=== PATIENT | female | born 1990 | race Caucasian/White ===

== ENCOUNTER 2016-08-26 10:29 | Emergency (ER) | payer SELFPAY ==
[2016-08-26 11:09] VITALS: BP 119/78
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
== END 2016-08-26 12:30 | disposition home or self-care (01) ==
LOC: JD.ED 10:29
DX: S80.211A Abrasion, right knee, initial encounter (principal); F41.9 Anxiety disorder, unspecified; F32.9 Major depressive disorder, single episode, unspecified; F17.210 Nicotine dependence, cigarettes, uncomplicated; Z88.8 Allergy status to other drugs, medicaments and biological substances; Z79.899 Other long term (current) drug therapy; V00.131A Fall from skateboard, initial encounter
CPT/HCPCS: 99283

== ENCOUNTER 2016-10-08 21:37 | Emergency (ER) | payer MEDICAID ==
[2016-10-08 21:45] VITALS: BP 117/84
[2016-10-08] MEDS ORDERED: Sodium Chloride 0.9% 10 ML Syringe FLUSH PRN (22:04)
[2016-10-08] MEDS ORDERED: Ondansetron 4 MG/2 ML SDV IVPUSH ONE (22:04)
[2016-10-08] MEDS ORDERED: Sodium Chloride 0.9% 1,000 ML IV STA (22:04)
[2016-10-08] MEDS ORDERED: HYDROmorphone 1 MG/ML Syringe IVPUSH ONE (22:05)
[2016-10-08] MEDS ORDERED: Acetaminophen 325 MG Tab PO ONE (22:05)
--- NOTE | 2016-10-08 22:53 | EDM.PDOC ---
ED HPI GENERAL MEDICAL PROBLEM - General Chief Complaint: Flank Pain Stated Complaint: KIDNEY PAIN/CHILLS Time Seen by Provider: 10/08/16 21:49 Source of Information: Reports: Patient History Limitations: Reports: No Limitations - History of Present Illness INITIAL COMMENTS - FREE TEXT/NARRATIVE: The patient presents with a fever, flank pain and dysuria. She had dysuria for a few days and was going to go into the clinic but she had to work. She now has bilateral flank pain, nausea, vomiting, and fever. She also has some abdominal pain. She does get UTIs easily. She has never had a kidney infection like this. She has chills. She denies chest pain, shortness of breath, cough, congestion or runny nose. Duration: Day(s): Location: Reports: Abdomen, Back Quality: Reports: Sharp Severity: Moderate Improves with: Reports: None Worsens with: Reports: None Associated Symptoms: Reports: Fever/Chills, Nausea/Vomiting. 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) Other OB/BYN History: cyst to left side Psychiatric History: Reports: Anxiety, Other (See Below) Other Psychiatric History: manic depression, insommnia Social & Family History - Tobacco Use Smoking Status *Q: Current Every Day Smoker Years of Tobacco use: 12 Packs/Tins Daily: 0.4 - Caffeine Use Caffeine Use: Reports: Coffee, Energy Drinks, Soda - Recreational Drug Use Recreational Drug Use: No ED ROS GENERAL - Review of Systems Review Of Systems: See Below Constitutional: Reports: Fever, Chills HEENT: Reports: No Symptoms Respiratory: Reports: No Symptoms Cardiovascular: Reports: No Symptoms Endocrine: Reports: No Symptoms GI/Abdominal: Reports: Abdominal Pain, Nausea, Vomiting. Denies: Diarrhea : Reports: Dysuria, Flank Pain Musculoskeletal: Reports: Back Pain ED EXAM, RENAL/ - Physical Exam Exam: See Below Exam Limited By: No Limitations General Appearance: Alert, No Apparent Distress Ears: Normal External Exam Nose: Normal Inspection Head: Atraumatic, Normocephalic Neck: Normal Inspection Respiratory/Chest: No Respiratory Distress, Lungs Clear, Normal Breath Sounds Cardiovascular: Regular Rate, Rhythm, No Edema, No Murmur GI/Abdominal: Soft, No Organomegaly, No Mass, Tender (Generalized) Course - Vital Signs Last Recorded V/S: Last Vital Signs Temp 100.1 F 10/08/16 23:23 Pulse 100 10/08/16 21:44 Resp 20 10/08/16 21:44 BP 117/84 10/08/16 21:44 Pulse Ox 98 10/08/16 21:44 - Orders/Labs/Meds Orders: Active Orders 24 hr Category Date Time Status Peripheral IV Care [RC] . DIRECTED Care 10/08/16 22:04 Active CULTURE BLOOD [BC] Stat Lab 10/08/16 22:20 Received CULTURE BLOOD [BC] Stat Lab 10/08/16 22:27 Received Levofloxacin/Dextrose 5%-Water [Levaquin in D5W 500 MG/ Med 10/08/16 23:33 Active 100 ML] 500 mg Premix Bag 1 bag IV ONETIME Sodium Chloride 0.9% [Saline Flush] Med 10/08/16 22:04 Active 10 ml FLUSH ASDIRECTED PRN Blood Culture x2 Reflex Set [OM.PC] Stat Oth 10/08/16 22:05 Ordered ED Antiemetic Medication Reflex [OM.PC] Stat Oth 10/08/16 22:04 Ordered Peripheral IV Insertion Adult [OM.PC] Stat Oth 10/08/16 22:04 Ordered Medication Orders Levofloxacin/Dextrose 500 mg/ (Premix) 100 mls @ 100 mls/hr IV ONETIME ONE Stop: 10/09/16 00:32 Last Admin: 10/08/16 23:42 Dose: 100 mls/hr Sodium Chloride (Saline Flush) 10 ml FLUSH ASDIRECTED PRN PRN Reason: Keep Vein Open Last Admin: 10/08/16 22:28 Dose: 10 ml Labs: Laboratory Tests 10/08/16 10/08/16 10/08/16 Range/Units 22:27 22:27 22:27 WBC 9.49 (3.98-10.04) K/mm3 RBC 4.17 (3.98-5.22) M/mm3 Hgb 11.9 (11.2-15.7) gm/L Hct 36.1 (34.1-44.9) % MCV 86.6 (79.4-94.8) fl MCH 28.5 (25.6-32.2) pg MCHC 33.0 (32.2-35.5) g/dl RDW Std Deviation 42.1 (36.4-46.3) fL Plt Count 145 L (182-369) K/mm3 MPV 11.3 (9.4-12.3) fl Neut % (Auto) 90.2 H (34.0-71.1) % Lymph % (Auto) 4.5 L (19.3-51.7) % Trigg % (Auto) 4.5 L (4.7-12.5) % Eos % (Auto) 0.4 L (0.7-5.8) Baso % (Auto) 0.2 (0.1-1.2) % Neut # (Auto) 8.55 H (1.56-6.13) K/mm3 Lymph # (Auto) 0.43 L (1.18-3.74) K/mm3 Trigg # (Auto) 0.43 H (0.24-0.36) K/mm3 Eos # (Auto) 0.04 (0.04-0.36) K/mm3 Baso # (Auto) 0.02 (0.01-0.08) K/mm3 Manual Slide Review Abnormal smear Sodium 135 L (136-145) mEq/L Potassium 3.2 L (3.5-5.1) mEq/L Chloride 101 (98-107) mEq/L Carbon Dioxide 24 (21-32) mEq/L Anion Gap 13.2 (5-15) BUN 9 (7-18) mg/dL Creatinine 1.0 (0.55-1.02) mg/dL Est Cr Clr Drug Dosing 62.81 mL/min Estimated GFR (MDRD) > 60 (>60) mL/min BUN/Creatinine Ratio 9.0 L (14-18) Glucose 106 (74-106) mg/dL Lactic Acid (0.4-2.0) mmol/L Calcium 8.6 (8.5-10.1) mg/dL Total Bilirubin 0.5 (0.2-1.0) mg/dL AST 12 L (15-37) U/L ALT 19 (14-59) U/L Alkaline Phosphatase 71 (46-116) U/L Total Protein 7.5 (6.4-8.2) g/dl Albumin 4.2 (3.4-5.0) g/dl Globulin 3.3 gm/dL Albumin/Globulin Ratio 1.3 (1-2) Lipase 72 L (73-393) U/L HCG, Qual Negative (NEGATIVE) Urine Color (Yellow) Urine Appearance (Clear) Urine pH (5.0-8.0) Ur Specific Union (1.005-1.030) Urine Protein (Negative) Urine Glucose (UA) (Negative) Urine Ketones (Negative) Urine Occult Blood (Negative) Urine Nitrite (Negative) Urine Bilirubin (Negative) Urine Urobilinogen (0.2-1.0) Ur Leukocyte Esterase (Negative) Urine RBC (0-5) /hpf Urine WBC (0-5) /hpf Urine WBC Clumps (NOT SEEN) /hpf Ur Epithelial Cells (0-5) /hpf Urine Bacteria (FEW) /hpf Urine Mucus (FEW) /hpf 10/08/16 10/08/16 Range/Units 22:27 22:45 WBC (3.98-10.04) K/mm3 RBC (3.98-5.22) M/mm3 Hgb (11.2-15.7) gm/L Hct (34.1-44.9) % MCV (79.4-94.8) fl MCH (25.6-32.2) pg MCHC (32.2-35.5) g/dl RDW Std Deviation (36.4-46.3) fL Plt Count (182-369) K/mm3 MPV (9.4-12.3) fl Neut % (Auto) (34.0-71.1) % Lymph % (Auto) (19.3-51.7) % Trigg % (Auto) (4.7-12.5) % Eos % (Auto) (0.7-5.8) Baso % (Auto) (0.1-1.2) % Neut # (Auto) (1.56-6.13) K/mm3 Lymph # (Auto) (1.18-3.74) K/mm3 Trigg # (Auto) (0.24-0.36) K/mm3 Eos # (Auto) (0.04-0.36) K/mm3 Baso # (Auto) (0.01-0.08) K/mm3 Manual Slide Review Sodium (136-145) mEq/L Potassium (3.5-5.1) mEq/L Chloride (98-107) mEq/L Carbon Dioxide (21-32) mEq/L Anion Gap (5-15) BUN (7-18) mg/dL Creatinine (0.55-1.02) mg/dL Est Cr Clr Drug Dosing mL/min Estimated GFR (MDRD) (>60) mL/min BUN/Creatinine Ratio (14-18) Glucose (74-106) mg/dL Lactic Acid 1.6 (0.4-2.0) mmol/L Calcium (8.5-10.1) mg/dL Total Bilirubin (0.2-1.0) mg/dL AST (15-37) U/L ALT (14-59) U/L Alkaline Phosphatase (46-116) U/L Total Protein (6.4-8.2) g/dl Albumin (3.4-5.0) g/dl Globulin gm/dL Albumin/Globulin Ratio (1-2) Lipase (73-393) U/L HCG, Qual (NEGATIVE) Urine Color Yellow (Yellow) Urine Appearance Slt cloudy H (Clear) Urine pH 6.0 (5.0-8.0) Ur Specific Union 1.015 (1.005-1.030) Urine Protein 1+ H (Negative) Urine Glucose (UA) Negative (Negative) Urine Ketones Negative (Negative) Urine Occult Blood Trace-intact H (Negative) Urine Nitrite Positive H (Negative) Urine Bilirubin Negative (Negative) Urine Urobilinogen 0.2 (0.2-1.0) Ur Leukocyte Esterase 2+ H (Negative) Urine RBC 0-5 (0-5) /hpf Urine WBC 50-75 H (0-5) /hpf Urine WBC Clumps Moderate (NOT SEEN) /hpf Ur Epithelial Cells Not seen (0-5) /hpf Urine Bacteria Many H (FEW) /hpf Urine Mucus Few (FEW) /hpf Meds: Medications Generic Name Dose Route Start Last Admin Trade Name Giovani PRN Reason Stop Dose Admin Levofloxacin/Dextrose 500 mg/ 100 mls @ 100 mls/hr 10/08/16 23:33 10/08/16 23 :42 Premix IV 10/09/16 00:32 100 mls/hr ONETIME ONE Administration Sodium Chloride 10 ml 10/08/16 22:04 10/08/16 22:28 Saline Flush FLUSH 10 ml ASDIRECTED PRN Administration Keep Vein Open Discontinued Medications Generic Name Dose Route Start Last Admin Trade Name Giovani PRN Reason Stop Dose Admin Acetaminophen 975 mg 10/08/16 22:05 10/08/16 22:28 Tylenol PO 10/08/16 22:06 975 mg NOW ONE Administration Hydromorphone HCl 1 mg 10/08/16 22:05 10/08/16 22:27 Dilaudid IVPUSH 10/08/16 22:06 1 mg ONETIME ONE Administration Hydromorphone HCl 0.5 mg 10/08/16 23:14 10/08/16 23:19 Dilaudid IVPUSH 10/08/16 23:15 0.5 mg ONETIME ONE Administration Sodium Chloride 1,000 mls @ 1,000 mls/hr 10/08/16 22:04 10/08/16 22:26 Normal Saline IV 10/08/16 23:03 1,000 mls/hr .BOLUS STA Administration Ondansetron HCl 4 mg 10/08/16 22:04 10/08/16 22:26 Zofran IVPUSH 10/08/16 22:05 4 mg ONETIME ONE Administration - Re-Assessments/Exams Free Text/Narrative Re-Assessment/Exam: 10/08/16 22:54 I ordered an IV NS 1L bolus, zofran 4mg IV, dilaudid 1mg IV, tylenol 975mg by mouth, labs and UA. 10/09/16 00:14 Her CBC looks good with a normal WBC. Her Na is a little low at 135. Her K was low at 3.2. Her HCG was negative. Her UA shows a UTI. I have ordered blood cultures and a urine culture. I gave her a dose of levaquin 500mg IV. I will get her on some macrobid and some thing for pain. Departure - Departure Time of Disposition: 12:20 Disposition: Home, Self-Care 01 Condition: Good Clinical Impression: UTI, Urinary tract infectious disease - Discharge Information Referrals: Dayna Wilks [facility] [Primary Care Provider] - Forms: ED Department Discharge Additional Instructions: Drink plenty of fluids. Take the macrobid BID for 5 days. Take the hydrocodone as needed for pain. Follow up with Michele Wilks and please return if you are worse. Take tylenol or motrin for any fever. Do not take the hydrocodone with tylenol. Hydrocodone has tylenol in it. - My Orders Last 24 Hours: My Active Orders 10/08/16 22:04 Peripheral IV Care [RC] . DIRECTED Sodium Chloride 0.9% [Saline Flush] 10 ml FLUSH ASDIRECTED PRN ED Antiemetic Medication Reflex [OM.PC] Stat Peripheral IV Insertion Adult [OM.PC] Stat 10/08/16 22:05 Blood Culture x2 Reflex Set [OM.PC] Stat 10/08/16 22:20 CULTURE BLOOD [BC] Stat 10/08/16 22:27 CULTURE BLOOD [BC] Stat 10/08/16 23:33 Levofloxacin/Dextrose 5%-Water [Levaquin in D5W 500 MG/100 ML] 500 mg Premix Bag 1 bag IV ONETIME - Assessment/Plan Last 24 Hours: My Active Orders 10/08/16 22:04 Peripheral IV Care [RC] . DIRECTED Sodium Chloride 0.9% [Saline Flush] 10 ml FLUSH ASDIRECTED PRN ED Antiemetic Medication Reflex [OM.PC] Stat Peripheral IV Insertion Adult [OM.PC] Stat 10/08/16 22:05 Blood Culture x2 Reflex Set [OM.PC] Stat 10/08/16 22:20 CULTURE BLOOD [BC] Stat 10/08/16 22:27 CULTURE BLOOD [BC] Stat 10/08/16 23:33 Levofloxacin/Dextrose 5%-Water [Levaquin in D5W 500 MG/100 ML] 500 mg Premix Bag 1 bag IV ONETIME
[2016-10-08] MEDS ORDERED: HYDROmorphone 0.5 MG/0.5 ML Syringe IVPUSH ONE (23:14)
[2016-10-08] MEDS ORDERED: Levofloxacin/Dextrose 5%-Water 500 MG in Premix Bag 1 BAG IV ONE (23:33)
== END 2016-10-09 00:41 | disposition home or self-care (01) ==
LOC: JD.ED 21:37
DX: N39.0 Urinary tract infection, site not specified (principal); F17.210 Nicotine dependence, cigarettes, uncomplicated; Z79.899 Other long term (current) drug therapy
CPT/HCPCS: 36415; 80053; 81001; 83605; 83690; 84703; 85025; 87040; 87086; 87088; 87186; 96361; 96365; 96375; 96376; 99284; A9270; J1170; J1956; J2405; J7040; J7050; P9612

== ENCOUNTER 2016-10-12 09:39 | Emergency (ER) | payer MEDICAID ==
[2016-10-12] MEDS ORDERED: Ondansetron 4 MG/2 ML SDV IVPUSH ONE (10:13)
[2016-10-12] MEDS ORDERED: Sodium Chloride 0.9% 10 ML Syringe FLUSH PRN (10:13)
[2016-10-12] MEDS ORDERED: Sodium Chloride 0.9% 1,000 ML IV SCH (10:15)
[2016-10-12] MEDS ORDERED: Levofloxacin/Dextrose 5%-Water 500 MG in Premix Bag 1 BAG IV ONE (10:15)
[2016-10-12] MEDS ORDERED: HYDROmorphone 1 MG/ML Syringe IVPUSH ONE ×2 (10:15→11:38)
--- NOTE | 2016-10-12 11:31 | CT ---
CT abdomen and pelvis Technique: Multiple axial sections were obtained from above the kidneys inferiorly through the pubic symphysis. Intravenous and oral contrast not utilized. Study has been performed as a ureteral stone protocol. Findings: 2 very small nonobstructing calculi are seen within the right kidney measuring around 2 mm. Smaller nonobstructing calculus is noted within the left kidney. Ureters are very difficult to see due to paucity of intra-abdominal fat. I do not see any definite calcification along the approximate course of the ureters. No hydronephrosis is seen. Visualized lung bases shows nothing acute. Visualized liver and spleen are within normal limits. Adrenal glands show no nodule. Pancreas is not well seen due to lack of contrast. Aorta shows no aneurysmal dilatation. No retroperitoneal adenopathy is seen. Gallbladder shows no calcified gallstones. No mesenteric abnormalities are seen. No discrete pelvic abnormality is noted. Mild increased stool is noted throughout the colon. Appendix is not seen. Bone window settings were reviewed which shows spondylolytic defects at L5-S1. Impression: 1. 2 small nonobstructing calculi within the right kidney and one very small nonobstructing calculus is seen within the left kidney. 2. Ureters are poorly seen due to paucity of intra-abdominal fat but no definite abnormal calcifications are seen expected location of the ureters. 2. Mild increased stool within colon. 3. 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 Diagnostic code #2
--- NOTE | 2016-10-12 12:18 | EDM.PDOC ---
ED HPI GENERAL MEDICAL PROBLEM - General Chief Complaint: Flank Pain Stated Complaint: FLANK PAIN Time Seen by Provider: 10/12/16 10:03 Source of Information: Reports: Patient History Limitations: Reports: No Limitations - History of Present Illness INITIAL COMMENTS - FREE TEXT/NARRATIVE: The patient present with bilateral flank pain that is worse on the left. She was here a few days ago for a UTI. She was put on antibiotics and something for pain. She says she is worse and the pain is not on the left. Her dysuria is gone. She has no fever. She has no nausea or vomiting any more. She continues to have the pain. Onset: Gradual Duration: Day(s): Location: Reports: Back (bilateral flank with left worse then right) Quality: Reports: Sharp Severity: Severe Improves with: Reports: None Worsens with: Reports: Movement Associated Symptoms: Reports: No Other Symptoms Flank Pain Score (Numeric/FACES): 10 - Related Data Allergies Allergy/AdvReac Type Severity Reaction Status Date / Time nsaids Allergy Abdominal Uncoded 10/12/16 09:52 Pain Home Meds: Home Meds Venlafaxine [Effexor] 225 mg PO DAILY 08/26/16 [History] clonazePAM [Klonopin] 1 mg PO TID PRN 10/12/16 [History] oxyCODONE HCl/Acetaminophen [Percocet 5-325 mg Tablet] 1 - 2 each PO Q6HR PRN # 20 tablet 10/12/16 [Rx] Past Medical History Gastrointestinal History: Reports: Hiatal Hernia, Other (See Below) Other Gastrointestinal History: "bowel issues" Genitourinary History: Reports: Pyelonephritis, Renal Calculus, UTI, Recurrent [employer] History: Reports: Other (See Below) Other OB/BYN History: cyst to left side Psychiatric History: Reports: Anxiety, Depression, Other (See Below) Other Psychiatric History: manic depression, insommnia Hematologic History: Reports: Anemia, Iron Deficiency - Infectious Disease History Infectious Disease History: Reports: Chicken Pox Social & Family History - Family History Family Medical History: Noncontributory - Tobacco Use Smoking Status *Q: Current Every Day Smoker Years of Tobacco use: 12 Packs/Tins Daily: 0.2 - Caffeine Use Caffeine Use: Reports: Coffee Other Caffeine Use: daily - Recreational Drug Use Recreational Drug Use: No ED ROS GENERAL - Review of Systems Review Of Systems: See Below Constitutional: Reports: No Symptoms HEENT: Reports: No Symptoms Respiratory: Reports: No Symptoms Cardiovascular: Reports: No Symptoms Endocrine: Reports: No Symptoms GI/Abdominal: Reports: No Symptoms : Reports: Flank Pain Musculoskeletal: Reports: Back Pain Skin: Reports: No Symptoms ED EXAM, RENAL/ - Physical Exam Exam: See Below Exam Limited By: No Limitations General Appearance: Alert, No Apparent Distress Ears: Normal External Exam Nose: Normal Inspection Head: Atraumatic, Normocephalic Neck: Normal Inspection Respiratory/Chest: No Respiratory Distress, Lungs Clear, Normal Breath Sounds Cardiovascular: Regular Rate, Rhythm, No Edema, No Murmur GI/Abdominal: Soft, Non-Tender, No Organomegaly, No Mass Back Exam: CVA Tenderness (L) (Severe), CVA Tenderness (R) Extremities: Normal Inspection Course - Vital Signs Last Recorded V/S: Last Vital Signs Temp 98.3 F 10/12/16 09:48 Pulse 62 10/12/16 09:48 Resp 18 10/12/16 09:48 BP 114/83 10/12/16 09:48 Pulse Ox 98 10/12/16 09:48 - Orders/Labs/Meds Orders: Active Orders 24 hr Category Date Time Status Peripheral IV Care [RC] . DIRECTED Care 10/12/16 10:13 Active Sodium Chloride 0.9% [Normal Saline] 1,000 ml Med 10/12/16 10:15 Active IV ASDIRECTED Sodium Chloride 0.9% [Saline Flush] Med 10/12/16 10:13 Active 10 ml FLUSH ASDIRECTED PRN ED Antiemetic Medication Reflex [OM.PC] Stat Oth 10/12/16 10:13 Ordered Peripheral IV Insertion Adult [OM.PC] Stat Oth 10/12/16 10:13 Ordered Medication Orders Sodium Chloride (Normal Saline) 1,000 mls @ 125 mls/hr IV ASDIRECTED MANSI Last Admin: 10/12/16 10:42 Dose: 125 mls/hr Sodium Chloride (Saline Flush) 10 ml FLUSH ASDIRECTED PRN PRN Reason: Keep Vein Open Last Admin: 10/12/16 10:30 Dose: 10 ml Labs: Laboratory Tests 10/12/16 10/12/16 10/12/16 Range/Units 10:25 10:25 10:25 WBC 4.45 (3.98-10.04) K/mm3 RBC 4.05 (3.98-5.22) M/mm3 Hgb 11.5 (11.2-15.7) gm/L Hct 35.3 (34.1-44.9) % MCV 87.2 (79.4-94.8) fl MCH 28.4 (25.6-32.2) pg MCHC 32.6 (32.2-35.5) g/dl RDW Std Deviation 43.0 (36.4-46.3) fL Plt Count 176 L (182-369) K/mm3 MPV 11.0 (9.4-12.3) fl Neut % (Auto) 59.6 (34.0-71.1) % Lymph % (Auto) 27.4 (19.3-51.7) % [place] % (Auto) 7.4 (4.7-12.5) % Eos % (Auto) 4.7 (0.7-5.8) Baso % (Auto) 0.9 (0.1-1.2) % Neut # (Auto) 2.65 (1.56-6.13) K/mm3 Lymph # (Auto) 1.22 (1.18-3.74) K/mm3 [place] # (Auto) 0.33 (0.24-0.36) K/mm3 Eos # (Auto) 0.21 (0.04-0.36) K/mm3 Baso # (Auto) 0.04 (0.01-0.08) K/mm3 Sodium 143 (136-145) mEq/L Potassium 4.1 (3.5-5.1) mEq/L Chloride 108 H (98-107) mEq/L Carbon Dioxide 28 (21-32) mEq/L Anion Gap 11.1 (5-15) BUN 5 L (7-18) mg/dL Creatinine 0.8 (0.55-1.02) mg/dL Est Cr Clr Drug Dosing 81.12 mL/min Estimated GFR (MDRD) > 60 (>60) mL/min BUN/Creatinine Ratio 6.3 L (14-18) Glucose 100 (74-106) mg/dL Calcium 9.1 (8.5-10.1) mg/dL Total Bilirubin 0.2 (0.2-1.0) mg/dL AST 11 L (15-37) U/L ALT 24 (14-59) U/L Alkaline Phosphatase 70 (46-116) U/L Total Protein 7.1 (6.4-8.2) g/dl Albumin 3.5 (3.4-5.0) g/dl Globulin 3.6 gm/dL Albumin/Globulin Ratio 1.0 (1-2) Lipase 84 (73-393) U/L HCG, Qual Negative (NEGATIVE) Urine Color (Yellow) Urine Appearance (Clear) Urine pH (5.0-8.0) Ur Specific [place] (1.005-1.030) Urine Protein (Negative) Urine Glucose (UA) (Negative) Urine Ketones (Negative) Urine Occult Blood (Negative) Urine Nitrite (Negative) Urine Bilirubin (Negative) Urine Urobilinogen (0.2-1.0) Ur Leukocyte Esterase (Negative) Urine RBC (0-5) /hpf Urine WBC (0-5) /hpf Ur Epithelial Cells (0-5) /hpf Urine Bacteria (FEW) /hpf Urine Mucus (FEW) /hpf /09/23 Range/Units 10:25 WBC (3.98-10.04) K/mm3 RBC (3.98-5.22) M/mm3 Hgb (11.2-15.7) gm/L Hct (34.1-44.9) % MCV (79.4-94.8) fl MCH (25.6-32.2) pg MCHC (32.2-35.5) g/dl RDW Std Deviation (36.4-46.3) fL Plt Count (182-369) K/mm3 MPV (9.4-12.3) fl Neut % (Auto) (34.0-71.1) % Lymph % (Auto) (19.3-51.7) % [place] % (Auto) (4.7-12.5) % Eos % (Auto) (0.7-5.8) Baso % (Auto) (0.1-1.2) % Neut # (Auto) (1.56-6.13) K/mm3 Lymph # (Auto) (1.18-3.74) K/mm3 [place] # (Auto) (0.24-0.36) K/mm3 Eos # (Auto) (0.04-0.36) K/mm3 Baso # (Auto) (0.01-0.08) K/mm3 Sodium (136-145) mEq/L Potassium (3.5-5.1) mEq/L Chloride (98-107) mEq/L Carbon Dioxide (21-32) mEq/L Anion Gap (5-15) BUN (7-18) mg/dL Creatinine (0.55-1.02) mg/dL Est Cr Clr Drug Dosing mL/min Estimated GFR (MDRD) (>60) mL/min BUN/Creatinine Ratio (14-18) Glucose (74-106) mg/dL Calcium (8.5-10.1) mg/dL Total Bilirubin (0.2-1.0) mg/dL AST (15-37) U/L ALT (14-59) U/L Alkaline Phosphatase (46-116) U/L Total Protein (6.4-8.2) g/dl Albumin (3.4-5.0) g/dl Globulin gm/dL Albumin/Globulin Ratio (1-2) Lipase (73-393) U/L HCG, Qual (NEGATIVE) Urine Color Yellow (Yellow) Urine Appearance Clear (Clear) Urine pH 7.5 (5.0-8.0) Ur Specific [place] 1.020 (1.005-1.030) Urine Protein Negative (Negative) Urine Glucose (UA) Negative (Negative) Urine Ketones Negative (Negative) Urine Occult Blood Negative (Negative) Urine Nitrite Negative (Negative) Urine Bilirubin Negative (Negative) Urine Urobilinogen 0.2 (0.2-1.0) Ur Leukocyte Esterase Negative (Negative) Urine RBC Not seen (0-5) /hpf Urine WBC 0-5 (0-5) /hpf Ur Epithelial Cells 0-5 (0-5) /hpf Urine Bacteria Few (FEW) /hpf Urine Mucus Few (FEW) /hpf Meds: Medications Generic Name Dose Route Start Last Admin Trade Name Freq PRN Reason Stop Dose Admin Sodium Chloride 1,000 mls @ 125 mls/hr 10/12/16 10:15 10/12/16 10:42 Normal Saline IV 125 mls/hr ASDIRECTED AMNSI Administration Sodium Chloride 10 ml 10/12/16 10:13 10/12/16 10:30 Saline Flush FLUSH 10 ml ASDIRECTED PRN Administration Keep Vein Open Discontinued Medications Generic Name Dose Route Start Last Admin Trade Name Giovani PRN Reason Stop Dose Admin Hydromorphone HCl 1 mg 10/12/16 10:15 10/12/16 10:45 Dilaudid IVPUSH 10/12/16 10:16 1 mg ONETIME ONE Administration Hydromorphone HCl 1 mg 10/12/16 11:38 10/12/16 11:49 Dilaudid IVPUSH 10/12/16 11:39 1 mg ONETIME ONE Administration Levofloxacin/Dextrose 500 mg/ 100 mls @ 100 mls/hr 10/12/16 10:15 10/12/16 10 :53 Premix IV 10/12/16 11:14 100 mls/hr ONETIME ONE Administration Ondansetron HCl 4 mg 10/12/16 10:13 10/12/16 10:43 Zofran IVPUSH 10/12/16 10:14 4 mg ONETIME ONE Administration - Re-Assessments/Exams Free Text/Narrative Re-Assessment/Exam: 10/12/16 12:16 I ordered an IV NS at 1L bolus, zofran 4mg IV, dilaudid 1g IV. Her labs look good. Her UA is negative. Her CT shows nothing acute. She has 2 stones in the right kidney and 1 stone in the left but there is nothing in the ureters. I gave her another dose of dilaudid. I will discharge her home. Departure - Departure Time of Disposition: 12:20 Disposition: Home, Self-Care 01 Condition: Good Clinical Impression: Flank pain - Discharge Information Prescriptions: oxyCODONE HCl/Acetaminophen [Percocet 5-325 mg Tablet] 1 - 2 each PO Q6HR PRN # 20 tablet PRN Reason: Pain Referrals: Dayna Wilks, [facility] [Primary Care Provider] - Forms: ED Department Discharge Additional Instructions: Take the medication as prescribed. Follow up with Dayna Wilks. Please return if you are worse. - My Orders Last 24 Hours: My Active Orders 10/12/16 10:13 Peripheral IV Care [RC] . DIRECTED Sodium Chloride 0.9% [Saline Flush] 10 ml FLUSH ASDIRECTED PRN ED Antiemetic Medication Reflex [OM.PC] Stat Peripheral IV Insertion Adult [OM.PC] Stat 10/12/16 10:15 Sodium Chloride 0.9% [Normal Saline] 1,000 ml IV ASDIRECTED - Assessment/Plan Last 24 Hours: My Active Orders 10/12/16 10:13 Peripheral IV Care [RC] . DIRECTED Sodium Chloride 0.9% [Saline Flush] 10 ml FLUSH ASDIRECTED PRN ED Antiemetic Medication Reflex [OM.PC] Stat Peripheral IV Insertion Adult [OM.PC] Stat 10/12/16 10:15 Sodium Chloride 0.9% [Normal Saline] 1,000 ml IV ASDIRECTED
[2016-10-12 12:32] VITALS: BP 107/82
== END 2016-10-12 12:30 | disposition home or self-care (01) ==
LOC: JD.ED 09:39
DX: R10.9 Unspecified abdominal pain (principal); F41.9 Anxiety disorder, unspecified; F32.9 Major depressive disorder, single episode, unspecified; F17.210 Nicotine dependence, cigarettes, uncomplicated; Z86.2 Personal history of diseases of the blood and blood-forming organs and certain disorders involving the immune mechanism; Z79.899 Other long term (current) drug therapy; Z87.440 Personal history of urinary (tract) infections
CPT/HCPCS: 36415; 74176; 80053; 81001; 83690; 84703; 85025; 96361; 96365; 96375; 96376; 99284; J1170; J1956; J2405; J7040; J7050; 99283

== ENCOUNTER 2016-12-01 15:49 | Emergency (ER) | payer MEDICAID ==
[2016-12-01 16:00] VITALS: BP 112/76
[2016-12-01] MEDS ORDERED: Alum Hydrox/Mag Hydrox/Simeth 30 ML, Lidocaine 2% 15 ML PO ONE ×2 (16:51)
[2016-12-01] MEDS ORDERED: Sodium Chloride 0.9% 10 ML Syringe FLUSH PRN ×2 (16:51→20:11)
[2016-12-01] MEDS ORDERED: Ondansetron 4 MG/2 ML SDV IVPUSH ONE ×2 (16:52→20:44)
[2016-12-01] MEDS ORDERED: HYDROmorphone 1 MG/ML Syringe IVPUSH ONE (16:52)
[2016-12-01] MEDS ORDERED: LORazepam 2 MG/ML MDV IVPUSH ONE (16:52)
[2016-12-01] MEDS ORDERED: Sodium Chloride 0.9% 1,000 ML IV ONE ×2 (16:53→18:48)
--- NOTE | 2016-12-01 17:01 | EDM.PDOC ---
ED HPI GENERAL MEDICAL PROBLEM - General Chief Complaint: Abdominal Pain Stated Complaint: BODY ACHES/VOMITING Time Seen by Provider: 12/01/16 16:42 Source of Information: Reports: Patient History Limitations: Reports: No Limitations - History of Present Illness INITIAL COMMENTS - FREE TEXT/NARRATIVE: Patient is a 26-year-old female presents ED complaining of generalized abdominal pain, nausea/vomiting, fever, diarrhea, inability to drink fluids and keep medications down. Patient states initially been having diarrhea for the past 3 days with onset of vomiting last night. She's been unable to keep any fluidsor food down. Pain is described as a sharp sensation worsened with palpation and movement. She has a history of chronic abdominal pain with unclear etiology. She's had EGD, colonoscopy with no significant findings. States with moving here in July she's been under more stress. Pain has worsened since then. She's been experiencing some intermittent blood within her stool. This is rare. She's felt warm with no documented fever. Denies any shortness of breath, chest pain, dysuria, painful intercourse, or any additional complaints. Patient does have a history of ovarian cyst located left ovary. Kidney stones approx. 5 years ago that have not passed. Of note she was referred to a principal gifts officer to discuss IBS symptoms that has not taken place yet. She's had no diarrhea today. Last menstrual cycle was November 03. Patient has had a tubal ligation. Past medical history includes anxiety and depression current medications include Klonopin and Effexor. Patient utilizes nicotine products, alcohol rarely , and no recreational drugs. Abdominal Pain Score (Numeric/FACES): 10 - Related Data Allergies Allergy/AdvReac Type Severity Reaction Status Date / Time nsaids Allergy Abdominal Uncoded 10/12/16 09:52 Pain Home Meds: Home Meds Venlafaxine [Effexor] 225 mg PO DAILY 08/26/16 [History] clonazePAM [Klonopin] 1 mg PO TID PRN 10/12/16 [History] Past Medical History Gastrointestinal History: Reports: Hiatal Hernia, Other (See Below) Other Gastrointestinal History: "bowel issues"; h. pylori Genitourinary History: Reports: Pyelonephritis, Renal Calculus, UTI, Recurrent CARD LACER History: Reports: Other (See Below) Other OB/BYN History: cyst to left side Psychiatric History: Reports: Anxiety, Depression, Other (See Below) Other Psychiatric History: manic depression, insommnia Hematologic History: Reports: Anemia, Iron Deficiency - Infectious Disease History Infectious Disease History: Reports: Chicken Pox Social & Family History - Family History Family Medical History: Noncontributory - Tobacco Use Smoking Status *Q: Current Every Day Smoker Years of Tobacco use: 12 Packs/Tins Daily: 0.5 - Caffeine Use Caffeine Use: Reports: Coffee, Energy Drinks, Soda Other Caffeine Use: daily - Recreational Drug Use Recreational Drug Use: No ED ROS GENERAL - Review of Systems Review Of Systems: See Below Constitutional: Reports: Fever, Malaise, Fatigue, Decreased Appetite. Denies: Chills HEENT: Reports: No Symptoms Respiratory: Reports: No Symptoms Cardiovascular: Reports: No Symptoms GI/Abdominal: Reports: Abdominal Pain, Bloody Stool (Rarely), Diarrhea, Decreased Appetite, Hematochezia, Nausea, Vomiting. Denies: Distension, Flatus , Hematemesis : Reports: No Symptoms Musculoskeletal: Reports: Back Pain (cva bilaterally) Skin: Reports: No Symptoms Neurological: Reports: No Symptoms Psychiatric: Reports: Anxiety ED EXAM, GI/ABD - Physical Exam Exam: See Below Exam Limited By: No Limitations General Appearance: Alert, WD/WN, Moderate Distress Ears: Hearing Grossly Normal Nose: Normal Inspection Throat/Mouth: Normal Voice, No Airway Compromise Neck: Normal Inspection, Supple Respiratory/Chest: No Respiratory Distress, Lungs Clear, Normal Breath Sounds, No Accessory Muscle Use, Chest Non-Tender Cardiovascular: Normal Peripheral Pulses, Regular Rate, Rhythm, No Murmur, Tachycardia Course - Vital Signs Last Recorded V/S: Last Vital Signs Temp 100.4 F 12/01/16 15:59 Pulse 93 12/01/16 15:59 Resp 20 12/01/16 15:59 BP 112/76 12/01/16 15:59 Pulse Ox 99 12/01/16 15:59 - Orders/Labs/Meds Orders: Active Orders 24 hr Category Date Time Status Peripheral IV Care [RC] . DIRECTED Care 12/01/16 16:51 Active Abdomen Pelvis w Cont [CT] Stat Exams 12/01/16 20:07 Taken CULTURE BLOOD [BC] Stat Lab 12/01/16 17:08 Received CULTURE BLOOD [BC] Stat Lab 12/01/16 17:23 Received Blood Culture x2 Reflex Set [OM.PC] Stat Oth 12/01/16 16:56 Ordered Peripheral IV Insertion Adult [OM.PC] Stat [facility] 12/01/16 16:51 Ordered Labs: Laboratory Tests 12/01/16 12/01/16 12/01/16 Range/Units 16:05 16:05 16:05 WBC 7.00 (3.98-10.04) K/mm3 RBC 4.43 (3.98-5.22) M/mm3 Hgb 12.5 (11.2-15.7) gm/L Hct 37.9 (34.1-44.9) % MCV 85.6 (79.4-94.8) fl MCH 28.2 (25.6-32.2) pg MCHC 33.0 (32.2-35.5) g/dl RDW Std Deviation 44.4 (36.4-46.3) fL Plt Count 146 L (182-369) K/mm3 MPV 11.2 (9.4-12.3) fl Neut % (Auto) 86.9 H (34.0-71.1) % Lymph % (Auto) 6.9 L (19.3-51.7) % [place] % (Auto) 5.4 (4.7-12.5) % Eos % (Auto) 0.6 L (0.7-5.8) Baso % (Auto) 0.1 (0.1-1.2) % Neut # (Auto) 6.08 (1.56-6.13) K/mm3 Lymph # (Auto) 0.48 L (1.18-3.74) K/mm3 [place] # (Auto) 0.38 H (0.24-0.36) K/mm3 Eos # (Auto) 0.04 (0.04-0.36) K/mm3 Baso # (Auto) 0.01 (0.01-0.08) K/mm3 Manual Slide Review Normal smear Sodium 137 (136-145) mEq/L Potassium 3.9 (3.5-5.1) mEq/L Chloride 104 (98-107) mEq/L Carbon Dioxide 24 (21-32) mEq/L Anion Gap 12.9 (5-15) BUN 16 (7-18) mg/dL Creatinine 0.8 (0.55-1.02) mg/dL Est Cr Clr Drug Dosing 77.75 mL/min Estimated GFR (MDRD) > 60 (>60) mL/min BUN/Creatinine Ratio 20.0 H (14-18) Glucose 84 (74-106) mg/dL Calcium 8.9 (8.5-10.1) mg/dL Total Bilirubin 0.9 (0.2-1.0) mg/dL AST 18 (15-37) U/L ALT 18 (14-59) U/L Alkaline Phosphatase 56 (46-116) U/L C-Reactive Protein 4.2 H* (<1.0) mg/dL Total Protein 6.8 (6.4-8.2) g/dl Albumin 4.0 (3.4-5.0) g/dl Globulin 2.8 gm/dL Albumin/Globulin Ratio 1.4 (1-2) Lipase 72 L (73-393) U/L HCG, Qual Negative (NEGATIVE) Urine Color (Yellow) Urine Appearance (Clear) Urine pH (5.0-8.0) Ur Specific [place]wing (1.005-1.030) Urine Protein (Negative) Urine Glucose (UA) (Negative) Urine Ketones (Negative) Urine Occult Blood (Negative) Urine Nitrite (Negative) Urine Bilirubin (Negative) Urine Urobilinogen (0.2-1.0) Ur Leukocyte Esterase (Negative) Urine RBC (0-5) /hpf Urine WBC (0-5) /hpf Ur Epithelial Cells (0-5) /hpf Urine Bacteria (FEW) /hpf Urine Mucus (FEW) /hpf Urine Opiates Screen (NEGATIVE) Ur Buprenorphine Scrn (NEGATIVE) Ur Oxycodone Screen (NEGATIVE) Urine Methadone Screen (NEGATIVE) Ur Propoxyphene Screen (NEGATIVE) Ur Barbiturates Screen (NEGATIVE) Ur Tricyclics Screen (NEGATIVE) Ur Phencyclidine Scrn (NEGATIVE) Ur Amphetamine Screen (NEGATIVE) U Methamphetamines Scrn (NEGATIVE) U Benzodiazepines Scrn (NEGATIVE) U Cocaine Metab Screen (NEGATIVE) U Marijuana (THC) Screen (NEGATIVE) Ethyl Alcohol 0.00 (0.00) gm% 12/01/16 12/01/16 Range/Units 19:39 19:39 WBC (3.98-10.04) K/mm3 RBC (3.98-5.22) M/mm3 Hgb (11.2-15.7) gm/L Hct (34.1-44.9) % MCV (79.4-94.8) fl MCH (25.6-32.2) pg MCHC (32.2-35.5) g/dl RDW Std Deviation (36.4-46.3) fL Plt Count (182-369) K/mm3 MPV (9.4-12.3) fl Neut % (Auto) (34.0-71.1) % Lymph % (Auto) (19.3-51.7) % [place] % (Auto) (4.7-12.5) % Eos % (Auto) (0.7-5.8) Baso % (Auto) (0.1-1.2) % Neut # (Auto) (1.56-6.13) K/mm3 Lymph # (Auto) (1.18-3.74) K/mm3 [place] # (Auto) (0.24-0.36) K/mm3 Eos # (Auto) (0.04-0.36) K/mm3 Baso # (Auto) (0.01-0.08) K/mm3 Manual Slide Review Sodium (136-145) mEq/L Potassium (3.5-5.1) mEq/L Chloride (98-107) mEq/L Carbon Dioxide (21-32) mEq/L Anion Gap (5-15) BUN (7-18) mg/dL Creatinine (0.55-1.02) mg/dL Est Cr Clr Drug Dosing mL/min Estimated GFR (MDRD) (>60) mL/min BUN/Creatinine Ratio (14-18) Glucose (74-106) mg/dL Calcium (8.5-10.1) mg/dL Total Bilirubin (0.2-1.0) mg/dL AST (15-37) U/L ALT (14-59) U/L Alkaline Phosphatase (46-116) U/L C-Reactive Protein (<1.0) mg/dL Total Protein (6.4-8.2) g/dl Albumin (3.4-5.0) g/dl Globulin gm/dL Albumin/Globulin Ratio (1-2) Lipase (73-393) U/L HCG, Qual (NEGATIVE) Urine Color Yellow (Yellow) Urine Appearance Slt cloudy H (Clear) Urine pH 6.0 (5.0-8.0) Ur Specific [place] > or = 1.030 (1.005-1.030) Urine Protein Trace H (Negative) Urine Glucose (UA) Negative (Negative) Urine Ketones 3+ H (Negative) Urine Occult Blood Negative (Negative) Urine Nitrite Negative (Negative) Urine Bilirubin Negative (Negative) Urine Urobilinogen 1.0 (0.2-1.0) Ur Leukocyte Esterase Negative (Negative) Urine RBC 0-5 (0-5) /hpf Urine WBC 0-5 (0-5) /hpf Ur Epithelial Cells 10-20 H (0-5) /hpf Urine Bacteria Few (FEW) /hpf Urine Mucus Few (FEW) /hpf Urine Opiates Screen Presumptive positive H (NEGATIVE) Ur Buprenorphine Scrn Negative (NEGATIVE) Ur Oxycodone Screen Negative (NEGATIVE) Urine Methadone Screen Negative (NEGATIVE) Ur Propoxyphene Screen Negative (NEGATIVE) Ur Barbiturates Screen Negative (NEGATIVE) Ur Tricyclics Screen Negative (NEGATIVE) Ur Phencyclidine Scrn Negative (NEGATIVE) Ur Amphetamine Screen Negative (NEGATIVE) U Methamphetamines Scrn Negative (NEGATIVE) U Benzodiazepines Scrn Presumptive positive H (NEGATIVE) U Cocaine Metab Screen Negative (NEGATIVE) U Marijuana (THC) Screen Presumptive positive H (NEGATIVE) Ethyl Alcohol (0.00) gm% Meds: Medications Discontinued Medications Generic Name Dose Route Start Last Admin Trade Name Freq PRN Reason Stop Dose Admin Al Hydroxide/Mg Hydroxide 30 0 ml 12/01/16 16:51 12/01/16 17:03 ml/ Lidocaine HCl 15 ml PO 12/01/16 16:52 45 ml ONETIME ONE Administration Diatrizoate Meglum/Diatrizoate Sod 120 ml 12/01/16 20:11 12/01/16 21:26 Gastrografin 37% PO 12/01/16 20:12 90 ml ONETIME ONE Administration Hydromorphone HCl 1 mg 12/01/16 16:52 Dilaudid IVPUSH 12/01/16 16:53 ONETIME ONE Hydromorphone HCl 0.5 mg 12/01/16 16:54 12/01/16 17:21 Dilaudid IVPUSH 12/01/16 16:55 0.5 mg ONETIME ONE Administration Hydromorphone HCl 0.5 mg 12/01/16 21:13 12/01/16 21:18 Dilaudid IVPUSH 12/01/16 21:14 0.5 mg ONETIME ONE Administration Sodium Chloride 1,000 mls @ 999 mls/hr 12/01/16 16:53 12/01/16 17:12 Normal Saline IV 12/01/16 17:53 999 mls/hr ONETIME ONE Administration Sodium Chloride 1,000 mls @ 999 mls/hr 12/01/16 18:48 12/01/16 18:59 Normal Saline IV 12/01/16 19:48 999 mls/hr ONETIME ONE Administration Iopamidol 100 ml 12/01/16 20:11 12/01/16 21:26 Isovue-300 (61%) IVPUSH 12/01/16 20:12 70 ml ONETIME ONE Administration Lorazepam 1 mg 12/01/16 16:52 12/01/16 17:03 Ativan IVPUSH 12/01/16 16:53 1 mg ONETIME ONE Administration Ondansetron HCl 4 mg 12/01/16 16:52 12/01/16 17:03 Zofran IVPUSH 12/01/16 16:53 4 mg ONETIME ONE Administration Ondansetron HCl 4 mg 12/01/16 20:44 12/01/16 20:51 Zofran IVPUSH 12/01/16 20:45 4 mg ONETIME ONE Administration Sodium Chloride 10 ml 12/01/16 16:51 Saline Flush FLUSH ASDIRECTED PRN Keep Vein Open Sodium Chloride 10 ml 12/01/16 20:11 12/01/16 21:26 Saline Flush FLUSH 10 ml ONETIME PRN Administration IV FLUSH - Re-Assessments/Exams Free Text/Narrative Re-Assessment/Exam: IV ordered with normal saline 999 mL per hour, GI cocktail, Dilaudid 0.5 mg IVP , Ativan 1 mg IVP, and Zofran 4 mg IVP. Initial labs and studies include CBC, chem 14, urine drug tox, serum EtOH, hCG, lipase, UA, and CRP. Two-view of the abdomen will be obtained as well. Patient is febrile 100.4, ordered blood cultures x2. Labs reviewed: WBC 7.00, hemoglobin 12.5, platelet count 146, neutrophil percentage is 86.9, neutrophil #6.08,sodium 137, potassium 3.9, AG 12.9, creatinine 0.8, CRP 4.2, lipase 72, hCG negative. 12/01/16 18:49 No UA sample has been provided. Patient urinated in the toilet without providing a sample. Additional liter of normal saline ordered. 12/01/16 20:17 UA slightly cloudy, trace protein, ketones 3+, urine epithelial cells 10-20. Serum EtOH 0.00. Pain localized to the right lower/mid quadrant concerning for appendicitis. CT the abdomen and pelvis with ordered with oral and IV contrast. 12/01/16 20:19 Urine drug tox pending. 12/01/16 20:21 Urine drug tox positive for opiates, benzodiazepines, and marijuana. 12/01/16 21:13 Per nursing staff patient's complaining of pain to her abdomen. Ordered Dilaudid 0.[address] has not been completed yet. 12/01/16 21:52 CT the abdomen and pelvis impression: Appendix Not visualized, 2.5 cm collapsed right-sided corpus luteal cyst. 12/01/16 22:[address] 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 Nothing concerning at this point with rupture of corpus luteal cyst. Vital signs are stable. Pain is well-controlled at this point. We'll discharge patient home with instructions as documented. Departure - Departure Time of Disposition: 21:52 Disposition: Home, Self-Care 01 Condition: Fair Clinical Impression: Abdominal pain Qualifiers: Abdominal location: right lower quadrant Qualified Code(s): R10.31 - Right lower quadrant pain Nausea & vomiting Qualifiers: Vomiting type: unspecified Vomiting Intractability: non-intractable Qualified Code(s): R11.2 - Nausea with vomiting, unspecified Ovarian cyst Qualifiers: Laterality: right Qualified Code(s): N83.201 - Unspecified ovarian cyst, right side - Discharge Information Instructions: Abdominal Pain, Adult, [id number] Referrals: Guerda Montalvo [Primary Care Provider] - Forms: ED Department Discharge Additional Instructions: CT of the abdomen and pelvis revealed a 2.5 cm collapsing right-sided corpus luteal cyst. Unable to visualize the appendix. Pain is most likely associated with the collapsing of the ovarian cyst. This should subside on its own over the next few days. Utilize Tylenol 650 mg every 4-6 hours as needed for pain. Take Zofran 4 mg ODT every 6 hours for nausea. For severe pain take Salley one tab every [address] this evening and/or while taking the Salley. Follow-up with CARD LACER specialist of your choice this coming week if symptoms persist. Return back to the ED if you develop any new or worsening symptoms. - My Orders Last 24 Hours: My Active Orders 12/01/16 16:51 Peripheral IV Care [RC] . DIRECTED Peripheral IV Insertion Adult [OM.PC] Stat 12/01/16 16:56 Blood Culture x2 Reflex Set [OM.PC] Stat 12/01/16 17:08 CULTURE BLOOD [BC] Stat 12/01/16 17:23 CULTURE BLOOD [BC] Stat 12/01/16 20:07 Abdomen Pelvis w Cont [CT] Stat - Assessment/Plan Last 24 Hours: My Active Orders 12/01/16 16:51 Peripheral IV Care [RC] . DIRECTED Peripheral IV Insertion Adult [OM.PC] Stat 12/01/16 16:56 Blood Culture x2 Reflex Set [OM.PC] Stat 12/01/16 17:08 CULTURE BLOOD [BC] Stat 12/01/16 17:23 CULTURE BLOOD [BC] Stat 12/01/16 20:07 Abdomen Pelvis w Cont [CT] Stat
[2016-12-01] MEDS: HYDROmorphone 0.5 MG/0.5 ML Syringe IVPUSH ONE ×2 (17:13→17:21)
[2016-12-01] MEDS ORDERED: Iopamidol 612 MG/ML 100 ML Bottle IVPUSH ONE (20:11)
[2016-12-01] MEDS ORDERED: HYDROmorphone 0.5 MG/0.5 ML Syringe IVPUSH ONE (21:13)
[2016-12-01] MEDS: Diatrizoate Meglumine/Diatrizoate Sodium 37% 120 ML Bottle PO ONE (21:26)
--- NOTE | 2016-12-03 08:57 | CT ---
CT abdomen and pelvis Technique: Multiple axial sections were obtained from above the dome of the diaphragm inferiorly through the pubic symphysis. Intravenous and oral contrast was utilized. Delayed images were obtained through the bladder. Comparison: Previous renal stone protocol CT dated 10/12/16. Findings: Visualized lung bases are clear. Liver shows no focal parenchymal abnormality. Spleen appears within normal limits. Adrenal glands show no nodule. Pancreas is within normal limits. Kidneys show symmetric contrast enhancement. Low density abnormality which has indeterminate Hounsfield unit measurement is seen within the lower right kidney measuring approximately 1.8 cm. Kidneys otherwise are unremarkable. Aorta shows no aneurysmal dilatation. Gallbladder shows no calcified gallstones. No retroperitoneal adenopathy or mesenteric abnormalities are seen. Appendix not visualized. No pelvic mass or adenopathy is seen. No free fluid or inflammatory change is identified. Delayed images show contrast within the bladder. 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 Impression: 1. Low-density lesion within the lower right kidney in a parapelvic location most likely due to cyst although this has indeterminate Hounsfield unit measurements. This finding is not seen on prior study due to noncontrast exam. Right kidney ultrasound is recommended to further evaluate. 2. Other incidental findings. Nothing acute is identified on CT study of the abdomen and pelvis. Diagnostic code #9 Mostly agree with preliminary report issued by [facility], with additional indeterminate finding within the lower right kidney for which ultrasound is recommended, ([facility] preliminary report dictated on 12/01/16, 10:49 PM Central Time)
== END 2016-12-01 22:28 | disposition home or self-care (01) ==
LOC: JD.ED 15:49
DX: R11.2 Nausea with vomiting, unspecified (principal); R10.31 Right lower quadrant pain; N83.201 Unspecified ovarian cyst, right side; F32.9 Major depressive disorder, single episode, unspecified; F17.210 Nicotine dependence, cigarettes, uncomplicated; Z86.2 Personal history of diseases of the blood and blood-forming organs and certain disorders involving the immune mechanism; Z87.442 Personal history of urinary calculi; Z79.899 Other long term (current) drug therapy; Z88.8 Allergy status to other drugs, medicaments and biological substances
CPT/HCPCS: 36415; 74177; 80053; 80306; 81001; 83690; 84703; 85025; 86140; 87040; 96361; 96374; 96375; 96376; 99284; A9270; G0480; J1170; J2060; J2405; J7040; J7050; Q9963; Q9967

== ENCOUNTER 2017-01-12 20:56 | Emergency (ER) | payer MEDICAID ==
[2017-01-12 21:09] VITALS: BP 108/82
--- NOTE | 2017-01-12 21:43 | EDM.PDOC ---
ED HPI GENERAL MEDICAL PROBLEM - General Chief Complaint: ENT Problem Stated Complaint: RIGHT SIDE FACE SWOLLEN/TOOTHACHE Time Seen by Provider: 01/12/17 21:20 Source of Information: Reports: Patient History Limitations: Reports: No Limitations - History of Present Illness INITIAL COMMENTS - FREE TEXT/NARRATIVE: Patient is a 26-year-old female with a history of poor dentition. Patient states for the past few days developed increasing pain to the upper and lower right jaw secondary to 3 teeth that have severe decay present. She has contacted multiple dentists here in [place] with inability to see them for at least 6 months. She has been taking Motrin and Tylenol at home with little results. States she has some swelling to the right side of her face and also cervical lymph nodes. There is no fever, chills, nausea/vomiting, difficulty swallowing, difficulty opening her mouth, stiff neck, or any additional complaints. Right Oral/Mouth Pain Score (Numeric/FACES): 10 - Related Data Allergies Allergy/AdvReac Type Severity Reaction Status Date / Time nsaids Allergy Abdominal Uncoded 01/12/17 21:09 Pain Home Meds: Home Meds Venlafaxine [Effexor] 225 mg PO DAILY 08/26/16 [History] clonazePAM [Klonopin] 1 mg PO TID PRN 10/12/16 [History] Penicillin V Potassium 500 mg PO Q6HR #40 tab 01/12/17 [Rx] Past Medical History Gastrointestinal History: Reports: Hiatal Hernia, Other (See Below) Other Gastrointestinal History: "bowel issues"; h. 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: Other (See Below) Other OB/BYN History: cyst to left side Psychiatric History: Reports: Anxiety, Depression, Other (See Below) Other Psychiatric History: manic depression, insommnia Hematologic History: Reports: Anemia, Iron Deficiency - Infectious Disease History Infectious Disease History: Reports: Chicken Pox Social & Family History - Family History Family Medical History: Noncontributory Cardiac: Reports: [facility] Neurological: Reports: CVA - Tobacco Use Smoking Status *Q: Current Every Day Smoker Years of Tobacco use: 12 Packs/Tins Daily: 1 - Caffeine Use Caffeine Use: Reports: Coffee Other Caffeine Use: daily - Recreational Drug Use Recreational Drug Use: No ED ROS ENT - Review of Systems Review Of Systems: ROS reveals no pertinent complaints other than HPI. ED EXAM, ENT - Physical Exam Exam: See Below Exam Limited By: No Limitations General Appearance: Alert, WD/WN, No Apparent Distress Ears: Hearing Grossly Normal Nose: Normal Inspection Mouth/Throat: Normal Inspection, Other (Multiple teeth with severe dental decay to the upper and lower right jaw. No gumline swelling. No notable swelling to the cheek jawline. Some right-sided lymphadenopathy noted.) Head: Atraumatic, Normocephalic Neck: Normal Inspection, Supple, Full Range of Motion, Lymphadenopathy (R) Respiratory/Chest: No Respiratory Distress, No Accessory Muscle Use Cardiovascular: Normal Peripheral Pulses, Regular Rate, Rhythm Neurological: Alert, Oriented, CN II-XII Intact, Normal Cognition, No Motor/ Sensory Deficits Psychiatric: Normal Affect, Normal Mood Skin: Warm, Dry, Intact, Normal Color Course - Vital Signs Last Recorded V/S: Last Vital Signs Temp 97.8 F 01/12/17 21:05 Pulse 91 01/12/17 21:05 Resp 22 H 01/12/17 21:05 BP 108/82 01/12/17 21:05 Pulse Ox 98 01/12/17 21:05 - Re-Assessments/Exams Free Text/Narrative Re-Assessment/Exam: Inferior alveolar dental block (right side) performed with bupivacaine with immediate results. Pain is initially decreased with this medication. There is some concerns for dental infection thus will treat her with penicillin 500 mg 4 times a day for the next 10 days. List of dentist in [place] has been provided for her to contact to seek immediate care. Discharge instructions as documented. Departure - Departure Time of Disposition: 21:40 Disposition: Home, Self-Care 01 Condition: Good Clinical Impression: Dental caries, Dental caries extending into dentin, Infected dental caries - Discharge Information Prescriptions: Penicillin V Potassium 500 mg PO Q6HR #40 tab Instructions: Dental Caries Referrals: Guerda Montalvo [Primary Care Provider] - Forms: ED Department Discharge Additional Instructions: As discussed take the full course of antibiotics as prescribed. Suggest taken a [id number] probiotic while on antibiotics. Utilize Tylenol and ibuprofen in alternating fashion for discomfort. Take with food and water. Call dentist listed on the piece of paper provided to schedule an appointment to be seen as soon as possible. Sleep in upright position. Do not chew on the affected side. Follow-up with PCP for further pain management. Return to ED for any new or worsening symptoms.
== END 2017-01-12 21:56 | disposition home or self-care (01) ==
LOC: JD.ED 20:56
DX: K02.9 Dental caries, unspecified (principal); F17.210 Nicotine dependence, cigarettes, uncomplicated; Z79.899 Other long term (current) drug therapy; Z87.442 Personal history of urinary calculi; Z87.440 Personal history of urinary (tract) infections
CPT/HCPCS: 64400; 99283; 99283-25

== ENCOUNTER 2017-02-07 17:27 | Emergency (ER) | payer MEDICAID ==
[2017-02-07 17:47] VITALS: BP 122/88
[2017-02-07] MEDS ORDERED: ClonazePAM 0.5 MG Tab PO ONE (19:41)
--- NOTE | 2017-02-07 19:44 | EDM.PDOCBH ---
ED HPI GENERAL MEDICAL PROBLEM - General Chief Complaint: Behavioral/Psych Stated Complaint: WITHDRAWL Time Seen by Provider: 02/07/17 19:24 Source of Information: Reports: Patient History Limitations: Reports: No Limitations - History of Present Illness INITIAL COMMENTS - FREE TEXT/NARRATIVE: Patient is a 26-year-old female who presents to the ED complaining of increasing anxiety with concerns of withdrawing from Klonopin. Patient states in the past she's been taking 3 mg of Klonopin during the day. Patient was seen by Dr. Bonilla with plans of stopping the Klonopin. Due to increasing anxiety, restlessness, and agitation they've been weaning her off it with low-dose Klonopin 0.5 mg every day as needed. She's been on this dosage for the past 2 weeks. Patient ran out of this medication yesterday. Thus is here with worsening anxiety, agitation, and intermittent sweating at night. Patient states she was scheduled to see a psych provider yesterday but was late to the appointment and thus was not able to be seen. Next appointment is April 07 of this year. Generalized Pain Score (Numeric/FACES): 6 - Related Data Allergies Allergy/AdvReac Type Severity Reaction Status Date / Time nsaids Allergy Abdominal Uncoded 02/07/17 17:47 Pain Home Meds: Home Meds Venlafaxine [Effexor] 300 mg PO DAILY 08/26/16 [History] clonazePAM [Klonopin] 1 mg PO TID PRN 10/12/16 [History] Penicillin V Potassium 500 mg PO Q6HR #40 tab 01/12/17 [Rx] ClonazePAM [KlonoPIN] 0.5 mg PO QAM PRN #7 tablet 02/07/17 [Rx] Past Medical History Gastrointestinal History: Reports: Hiatal Hernia, Other (See Below) Other Gastrointestinal History: "bowel issues"; h. 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: Other (See Below) Other OB/BYN History: cyst to left side Psychiatric History: Reports: Anxiety, Depression, Other (See Below) Other Psychiatric History: manic depression, insommnia Hematologic History: Reports: Anemia, Iron Deficiency - Infectious Disease History Infectious Disease History: Reports: Chicken Pox Social & Family History - Family History Family Medical History: Noncontributory Cardiac: Reports: [place] Neurological: Reports: CVA - Tobacco Use Smoking Status *Q: Never Smoker Years of Tobacco use: 12 Packs/Tins Daily: 1 - Caffeine Use Caffeine Use: Reports: Coffee Other Caffeine Use: daily - Recreational Drug Use Recreational Drug Use: Yes Drug Use in Last 12 Months: Yes Recreational Drug Type: Reports: Marijuana/Hashish ED ROS GENERAL - Review of Systems Review Of Systems: See Below Constitutional: Reports: Malaise, Fatigue, Decreased Appetite HEENT: Reports: No Symptoms Respiratory: Reports: No Symptoms Cardiovascular: Reports: No Symptoms GI/Abdominal: Reports: No Symptoms. Denies: Nausea, Vomiting : Reports: No Symptoms Musculoskeletal: Reports: No Symptoms Neurological: Denies: Headache, Numbness, Seizure, Tingling Psychiatric: Reports: Agitation, Anxiety, Depression, Mood Lability. Denies: Hallucinations, Homicidal Ideation, Suicidal Ideation ED EXAM, BEHAVIORAL HEALTH - Physical Exam Exam: See Below Exam Limited By: No Limitations General Appearance: Alert, WD/WN, Anxious Eye Exam: Bilateral Eye: PERRL Ears: Hearing Grossly Normal Nose: Normal Inspection Throat/Mouth: Normal Voice, No Airway Compromise Neck: Normal Inspection, Supple Respiratory/Chest: No Respiratory Distress, Lungs Clear, Normal Breath Sounds, No Accessory Muscle Use Cardiovascular: Normal Peripheral Pulses, Regular Rate, Rhythm, No Murmur GI/Abdominal: Normal Bowel Sounds, Soft, Non-Tender, No Organomegaly, No Distention Neurological: Alert, CN II-XII Intact, Normal Cognition, No Motor/Sensory Deficits, Oriented x 3 Psychiatric: Alert, Normal Affect, Normal Cognition, Depressed Mood, Tearful. No: Restless, Agitated, Suicidal Plan, Suicidal Thoughts, Auditory Hallucinations, Visual Hallucinations Skin Exam: Warm, Dry, Intact, Normal color COURSE, BEHAVIORAL HEALTH COMP - Course Vital Signs: Last Vital Signs Temp 98.3 F 02/07/17 17:43 Pulse 76 02/07/17 17:43 Resp 16 02/07/17 17:43 BP 122/88 02/07/17 17:43 Pulse Ox 100 02/07/17 17:43 Orders, Labs, Meds: Medications Discontinued Medications Generic Name Dose Route Start Last Admin Trade Name Freq PRN Reason Stop Dose Admin Clonazepam 0.5 mg 02/07/17 19:41 02/07/17 19:52 Klonopin PO 02/07/17 19:42 0.5 mg ONETIME ONE Administration Re-Assessment/Re-Exam: Order Klonopin 0.5 mg by mouth. 2043 per nursing patient is ready be discharged home. Will discharge patient home with instructions as documented. Departure - Departure Time of Disposition: 20:44 Disposition: Home, Self-Care 01 Condition: Good Clinical Impression: Anxiety - Discharge Information Prescriptions: ClonazePAM [KlonoPIN] 0.5 mg PO QAM PRN #7 tablet PRN Reason: Anxiety Instructions: Panic Attacks Referrals: Guerda Montalvo [Primary Care Provider] - Yanira Canchola NP [Nurse Practitioner] - Roman Rascon MD [Physician] - [facility] [Outside] Forms: ED Department Discharge Additional Instructions: As discussed take the Klonopin 0.5 mg by mouth every day as needed. Make an appointment to see Dr. Bonilla your PCP this week. Call tomorrow morning for an appointment. Call [facility] clinic tomorrow for earliest appt. May go to [facility] for evaluation as well. Go tomorrow morning at 800 a.m to be evaluated. No driving while taking the klonopin. Refrain from alcohol use. Return to the ED as needed for any new or worsening symptoms.
== END 2017-02-07 20:55 | disposition home or self-care (01) ==
LOC: JD.ED 17:27
DX: F41.9 Anxiety disorder, unspecified (principal); F32.9 Major depressive disorder, single episode, unspecified; Z86.2 Personal history of diseases of the blood and blood-forming organs and certain disorders involving the immune mechanism; Z79.899 Other long term (current) drug therapy; Z88.8 Allergy status to other drugs, medicaments and biological substances
CPT/HCPCS: 99284; A9270

== ENCOUNTER 2017-05-03 01:57 | Emergency (ER) | payer MEDICAID ==
[2017-05-03 02:08] VITALS: BP 116/104
--- NOTE | 2017-05-03 02:29 | EDM.PDOC ---
ED HPI GENERAL MEDICAL PROBLEM - General Chief Complaint: Gastrointestinal Problem Stated Complaint: VOMITING/HEAD MORALES Time Seen by Provider: 05/03/17 02:09 Source of Information: Reports: Patient, Significant Other (Boyfriend) History Limitations: Reports: No Limitations - History of Present Illness INITIAL COMMENTS - FREE TEXT/NARRATIVE: The patient states that she has been experiencing daily for the past 2 months right head pounding, photophobia, and phonophobia. She has not been adequately evaluated prior to tonight. Her current episode began around 16:00 or 17:00 last evening. She developed nausea around 22:00, then began vomiting after she woke from a nap just after midnight. She does not have any visual changes, and while she states that the right side of her neck and head are burning, and that she is tingling everywhere , she denies any other neurologic symptoms, such as focal weakness. The patient states that she took 3 Advil at 19:00, without any relief. The patient's boyfriend states that they are moving, and that the patient is under a lot of stress. The patient states that she underwent a CT scan of her head about 4 years ago, which was negative, but she has not been formally diagnosed with migraines, and does not take any migraine prophylactic or abortive medication. The patient states that she has a history of anxiety, depression, and bipolar affective disorder, none of which are currently being treated. The patient's PCP is Dr. Montalvo. 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: Reports: NSAIDS Headache Pain Score (Numeric/FACES): 10 - Related Data Allergies Allergy/AdvReac Type Severity Reaction Status Date / Time nsaids Allergy Abdominal Uncoded 02/07/17 17:47 Pain Home Meds: Home Meds Venlafaxine [Effexor] 300 mg PO DAILY 08/26/16 [History] clonazePAM [Klonopin] 1 mg PO TID PRN 10/12/16 [History] Penicillin V Potassium 500 mg PO Q6HR #40 tab 01/12/17 [Rx] ClonazePAM [KlonoPIN] 0.5 mg PO QAM PRN #7 tablet 02/07/17 [Rx] Rizatriptan [Maxalt OVERLOCK HEMMER] 1 tab PO Q2H PRN #3 tab.dis 05/03/17 [Rx] Past Medical History Gastrointestinal History: Reports: Hiatal Hernia [employer] History: Reports: Other (See Below) (Ovarian cyst) Neurological History: Reports: Migraines Psychiatric History: Reports: Anxiety (untreated), Bipolar (untreated), Depression Hematologic History: Reports: Anemia, Iron Deficiency - Infectious Disease History Infectious Disease History: Reports: Chicken Pox - Past Surgical History Female Surgical History: Reports: Section (x 2) Social & Family History - Family History Family Medical History: Noncontributory Cardiac: Reports: [place] Neurological: Reports: CVA - Tobacco Use Smoking Status *Q: Current Every Day Smoker Years of Tobacco use: 13 Packs/Tins Daily: 0.5 Packs/Tins Daily Comment: Down from 1 ppd - Caffeine Use Caffeine Use: Reports: Coffee, Energy Drinks, Soda, Tea Other Caffeine Use: daily - Alcohol Use Alcohol Use History: Yes Alcohol Use Frequency: Rarely - Recreational Drug Use Recreational Drug Use: Yes Drug Use in Last 12 Months: Yes Recreational Drug Type: Reports: Marijuana/Hashish (last a few months ago) - Living Situation & Occupation Living situation: Reports: Single, with Significant Other (Boyfriend), with Family (2 kids) Occupation: Unemployed ED ROS GENERAL - Review of Systems Review Of Systems: ROS reveals no pertinent complaints other than HPI. - Physical Exam Exam: See Below Exam Limited By: No Limitations General Appearance: Alert, WD/WN, Mild Distress (dry heaves) Eye Exam: Bilateral Eye: EOMI, Normal Inspection, PERRL Ears: Normal External Exam, Hearing Grossly Normal Nose: Normal Inspection, No Blood Throat/Mouth: Normal Inspection, Normal Lips, Normal Voice, No Airway Compromise Head Exam: Atraumatic, Normocephalic Neck: Normal Inspection, Full Range of Motion Respiratory/Chest: No Respiratory Distress, Lungs Clear, Normal Breath Sounds, No Accessory Muscle Use Cardiovascular: Normal Peripheral Pulses, Regular Rate, Rhythm, No Gallop, No JVD, No Murmur, No Rub GI/Abdominal: Normal Bowel Sounds, Soft, Non-Tender, No Organomegaly, No Distention, No Abnormal Bruit, No Mass (Female) Exam: Deferred Rectal (Female) Exam: Deferred Neuro Exam (Abbreviated): Alert, Oriented, CN II-XII Intact, Normal Cognition, No Motor/Sensory Deficits Back Exam: Normal Inspection, Full Range of Motion, NT Extremities: Normal Inspection, Normal Range of Motion, No Pedal Edema, Normal Capillary Refill Psychiatric: Normal Affect Skin Exam: Warm, Dry, Intact, Normal Color, No Rash Course - Vital Signs Last Recorded V/S: Last Vital Signs Temp 36.7 C 05/03/17 02:03 Pulse 77 05/03/17 02:03 Resp 18 05/03/17 02:03 BP 116/104 H 05/03/17 02:03 Pulse Ox 98 05/03/17 02:03 - Orders/Labs/Meds Orders: Active Orders 24 hr Category Date Time Status Head wo Cont [CT] Stat Exams 05/03/17 02:30 Taken Sodium Chloride 0.9% [Normal Saline] 1,000 ml Med 05/03/17 02:30 Active IV ONETIME Medication Orders Sodium Chloride (Normal Saline) 1,000 mls @ 999 mls/hr IV ONETIME ONE Stop: 05/03/17 03:30 Last Admin: 05/03/17 02:46 Dose: 999 mls/hr Meds: Medications Generic Name Dose Route Start Last Admin Trade Name Freq PRN Reason Stop Dose Admin Sodium Chloride 1,000 mls @ 999 mls/hr 05/03/17 02:30 05/03/17 02:46 Normal Saline IV 05/03/17 03:30 999 mls/hr ONETIME ONE Administration Discontinued Medications Generic Name Dose Route Start Last Admin Trade Name Freq PRN Reason Stop Dose Admin Diphenhydramine HCl 50 mg 05/03/17 02:30 05/03/17 02:41 Benadryl IVPUSH 05/03/17 02:31 50 mg ONETIME ONE Administration Haloperidol Lactate 5 mg 05/03/17 02:30 05/03/17 02:42 Haldol IM 05/03/17 02:31 5 mg ONETIME ONE Administration Ondansetron HCl 4 mg 05/03/17 02:30 05/03/17 02:43 Zofran IVPUSH 05/03/17 02:31 4 mg ONETIME ONE Administration - Re-Assessments/Exams Free Text/Narrative Re-Assessment/Exam: 05/03/17 02:31 The description that the patient gives of her headache is consistent with a migraine, therefore I will treat her with Haldol him a Benadryl, Zofran, and IV fluid. Because the last imaging study of her head was more than 1 year ago, I have also ordered a CT scan of the head without contrast, although her neurologic exam is normal and I do not expect any abnormalities on the CT scan. 05/03/17 03:21 CT of the head without contrast is read by [facility] as "Normal head/ brain CT." 05/03/17 03:25 The patient states that she feels substantially better, following IM Haldol. This confirms the patient's headache was migrainous in etiology. I will e- prescribe Maxalt, but I would also like her to follow-up with her PCP, Dr. Montalvo, to discuss migraine prophylaxis options. Departure - Departure Time of Disposition: 03:25 Disposition: Home, Self-Care 01 Condition: Good Clinical Impression: Migraine headache - Discharge Information Referrals: Guerda Montalvo [Primary Care Provider] - Forms: ED Department Discharge Additional Instructions: You were seen in the emergency room for a right head pounding headache, sensitivity to light and sound, nausea, and vomiting. Workup in the ER included a CT scan of your head, which was normal. You were treated with an anti-migraine medicine, which successfully treated your headache. This confirms that your headaches are migraines. Get plenty of rest tonight in a dark, quiet place. Stay well hydrated. A prescription for the anti-migraine medicine Maxalt (rizatriptan) has been sent to the [facility], now located in the [place] store. Dissolve 1 tablet in your mouth at the earliest onset of migraine symptoms. You may repeat after 2 hours, to a maximum of 3 tablets within a 24-hour period. If this medicine works, talk to Dr. Montalvo about a new prescription. We also recommend you talk to Dr. Montalvo about migraine prophylactic ( preventative) medication options. If any other problems, please do not hesitate to return to the ER. - My Orders Last 24 Hours: My Active Orders 05/03/17 02:30 Head wo Cont [CT] Stat Sodium Chloride 0.9% [Normal Saline] 1,000 ml IV ONETIME - Assessment/Plan Last 24 Hours: My Active Orders 05/03/17 02:30 Head wo Cont [CT] Stat Sodium Chloride 0.9% [Normal Saline] 1,000 ml IV ONETIME
[2017-05-03] MEDS ORDERED: Ondansetron 4 MG/2 ML SDV IVPUSH ONE (02:30)
[2017-05-03] MEDS ORDERED: Sodium Chloride 0.9% 1,000 ML IV ONE (02:30)
[2017-05-03] MEDS ORDERED: Haloperidol Lactate 5 MG/ML SDV IM ONE (02:30)
[2017-05-03] MEDS ORDERED: diphenhydrAMINE 50 MG/ML SDV IVPUSH ONE (02:30)
--- NOTE | 2017-05-03 06:27 | CT ---
Head CT Technique: Multiple axial sections through the brain were obtained. Intravenous contrast was not utilized. Comparison: No prior intracranial imaging. Findings: Ventricles along with basal cisterns and sulci over the convexities are within normal limits for the patient's age. No abnormal parenchymal densities are seen. No evidence of intracranial hemorrhage. No midline shift or mass effect is seen. Bone window settings were reviewed which show no acute calvarial abnormality. Visualized sinuses are clear. Impression: 1. Nothing acute is seen on noncontrast head CT study. Diagnostic code #1 Agree with preliminary report issued by [facility] ([facility] preliminary report dictated on 05/03/17, 4:17 AM Central Time)
== END 2017-05-03 03:50 | disposition home or self-care (01) ==
LOC: JD.ED 01:57
DX: G43.909 Migraine, unspecified, not intractable, without status migrainosus (principal); F17.210 Nicotine dependence, cigarettes, uncomplicated; Z88.8 Allergy status to other drugs, medicaments and biological substances; Z79.899 Other long term (current) drug therapy
CPT/HCPCS: 70450; 96361; 96372; 96374; 96375; 99284; J1200; J1630; J2405; J7040

== ENCOUNTER 2017-05-04 07:43 | Emergency (ER) | payer MEDICAID ==
[2017-05-04 07:52] VITALS: BP 122/85
[2017-05-04] MEDS ORDERED: Sodium Chloride 0.9% 10 ML Syringe FLUSH PRN (07:57)
[2017-05-04] MEDS ORDERED: diphenhydrAMINE 50 MG/ML SDV IVPUSH ONE (07:57)
[2017-05-04] MEDS ORDERED: diphenhydrAMINE 25 MG Cap PO ONE (07:58)
--- NOTE | 2017-05-04 08:06 | EDM.PDOC ---
ED HPI GENERAL MEDICAL PROBLEM - General Chief Complaint: General Stated Complaint: NAUSEA POSSIBLE REACTION TO MEDS FROM ER VISIT Time Seen by Provider: 05/04/17 07:53 Source of Information: Reports: Patient, Family (spouse) History Limitations: Reports: No Limitations - History of Present Illness INITIAL COMMENTS - FREE TEXT/NARRATIVE: 27-year-old female who was seen in the ED earlier this morning for a right sided ishan-migraine headache. She received Benadryl 50 mg IV and Haldol 5 mg IM and Zofran 4 mg IV. Headache improved fairly promptly with this treatment. She was discharged to home but she states that since getting home she feels extremely agitated. Feels like she is going to crawl out of her skin ,restless and can't hold still ie.severe akathisia. part of dystonic syndrome as a side effect of potentially Zofran and Haldol. At present her headache remains completely gone. She's not been able to rest her fall asleep since getting home. Was discharged from the ED approximately 0400 hrs. this morning. Onset: Today Onset Date: 05/04/17 Duration: Hour(s): Location: Reports: Generalized Quality: Reports: Other (Agitation-like skin is crawling. Restless no position is comfortable.) Severity: Severe Improves with: Reports: None Worsens with: Reports: None Context: Reports: Other (Adverse effects to medications.). Denies: Activity, Exercise, Lifting, Sick Contact, Trauma Associated Symptoms: Reports: Headaches. 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 Is given for a right hemicranial migraine. It improved the headache immensely and the headache remains gone but she has severe side effects to the Haldol primarily.) - Related Data Allergies Allergy/AdvReac Type Severity Reaction Status Date / Time nsaids Allergy Abdominal Uncoded 02/07/17 17:47 Pain Home Meds: Home Meds Venlafaxine [Effexor] 300 mg PO DAILY 08/26/16 [History] clonazePAM [Klonopin] 1 mg PO TID PRN 10/12/16 [History] Penicillin V Potassium 500 mg PO Q6HR #40 tab 01/12/17 [Rx] ClonazePAM [KlonoPIN] 0.5 mg PO QAM PRN #7 tablet 02/07/17 [Rx] Rizatriptan [Maxalt PETAL CUTTER] 1 tab PO Q2H PRN #3 tab.dis 05/03/17 [Rx] Past Medical History Gastrointestinal History: Reports: Hiatal Hernia Other Gastrointestinal History: "bowel issues"; h. 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: Reports: Other (See Below) (Ovarian cyst) Other OB/BYN History: cyst to left side Neurological History: Reports: Migraines Psychiatric History: Reports: Anxiety (untreated), Bipolar (untreated), Depression Other Psychiatric History: manic depression, insommnia Hematologic History: Reports: Anemia, Iron Deficiency - Infectious Disease History Infectious Disease History: Reports: Chicken Pox - Past Surgical History Female Surgical History: Reports: Section (x 2) Social & Family History - Family History Family Medical History: Noncontributory Cardiac: Reports: [place] Neurological: Reports: CVA - Tobacco Use Smoking Status *Q: Current Every Day Smoker Years of Tobacco use: 13 Packs/Tins Daily: 0.5 Used Tobacco, but Quit: No Second Hand Smoke Exposure: No - Caffeine Use Caffeine Use: Reports: Coffee Other Caffeine Use: daily - Recreational Drug Use Recreational Drug Use: Yes Drug Use in Last 12 Months: Yes Recreational Drug Type: Reports: Marijuana/Hashish - Living Situation & Occupation Living situation: Reports: Single, with Significant Other (Boyfriend), with Family (2 kids) Occupation: Unemployed ED ROS GENERAL - Review of Systems Review Of Systems: See Below Constitutional: Reports: Malaise, Weakness, Fatigue. Denies: Fever, Chills HEENT: Reports: No Symptoms Respiratory: Reports: No Symptoms Cardiovascular: Reports: Dyspnea on Exertion Endocrine: Reports: No Symptoms GI/Abdominal: Reports: No Symptoms : Reports: No Symptoms Musculoskeletal: Reports: Other (Severe restlessness with some muscle stiffness appreciated, upper arms and legs.) Skin: Reports: Other (Feels like she is going to crawl out of her skin or that there is something under her skin.) Neurological: Reports: Other (Agitated ,restless spontaneous movements of arms and legs.) Psychiatric: Reports: Agitation Hematologic/Lymphatic: Reports: No Symptoms Immunologic: Reports: No Symptoms ED EXAM, GENERAL - Physical Exam Exam: See Below Exam Limited By: No Limitations ( is very tearful and crying.) General Appearance: Moderate Distress Eye Exam: Bilateral Eye: Nystagmus (Bilaterally on lateral gaze.) Throat/Mouth: Normal Inspection, Normal Lips, Normal Oropharynx Head: Atraumatic, Normocephalic Neck: Normal Inspection, Supple, Non-Tender, Full Range of Motion. No: Lymphadenopathy (L), Lymphadenopathy (R) Respiratory/Chest: No Respiratory Distress, Lungs Clear, Normal Breath Sounds Cardiovascular: Normal Peripheral Pulses, Regular Rate, Rhythm, No Edema, No Murmur, No Rub Peripheral Pulses: 3+: Carotid (L), Carotid (R) Extremities: Normal Inspection, Normal Range of Motion, Non-Tender, Other ( Patient is extremely restless moving her legs back and forth 5 flexion and extension at the hips and knees as well as continuous movement of her upper extremities due to severe akathisia.) Neurological: Alert, Oriented, Normal Cognition Psychiatric: Anxious Skin Exam: Warm (Dominic anxious and crying.), Dry, Intact, Normal Color, No Rash Course - Vital Signs Last Recorded V/S: Last Vital Signs Temp 36.2 C 05/04/17 07:49 Pulse 68 05/04/17 07:49 Resp 18 05/04/17 07:49 BP 122/85 05/04/17 07:49 Pulse Ox 99 05/04/17 07:49 - Orders/Labs/Meds Orders: Active Orders 24 hr Category Date Time Status Peripheral IV Care [RC] . DIRECTED Care 05/04/17 07:57 Active Sodium Chloride 0.9% [Saline Flush] Med 05/04/17 07:57 Active 10 ml FLUSH ASDIRECTED PRN diphenhydrAMINE [Benadryl] Med 05/04/17 08:37 Once 50 mg PO ONETIME ONE Peripheral IV Insertion Adult [OM.PC] Stat Oth 05/04/17 07:57 Ordered Medication Orders Sodium Chloride (Saline Flush) 10 ml FLUSH ASDIRECTED PRN PRN Reason: Keep Vein Open Last Admin: 05/04/17 08:11 Dose: 10 ml Meds: Medications Generic Name Dose Route Start Last Admin Trade Name Fretal PRN Reason Stop Dose Admin Sodium Chloride 10 ml 05/04/17 07:57 05/04/17 08:11 Saline Flush FLUSH 10 ml ASDIRECTED PRN Administration Keep Vein Open Discontinued Medications Generic Name Dose Route Start Last Admin Trade Name Fretal PRN Reason Stop Dose Admin Diphenhydramine HCl 25 mg 05/04/17 07:57 05/04/17 08:10 Benadryl IVPUSH 05/04/17 07:58 25 mg ONETIME ONE Administration Diphenhydramine HCl 25 mg 05/04/17 07:58 05/04/17 08:11 Benadryl PO 05/04/17 07:59 25 mg ONETIME ONE Administration - Radiology Interpretation Free Text/Narrative:: 27-year-old female presents to the ED with severe acathisia and agitation from Haldol given IM earlier in the morning for right hemicranial migraine. She did receive Benadryl 50 mg IV as well but in spite of this is developed severe akathesia and agitation. Will repeat Benadryl 25 mg IV and 25 mg by mouth. Of note this may be an interaction with venlafaxine as by itself it can induce a serotonin syndrome and extrapyramidal side effects. - Re-Assessments/Exams Free Text/Narrative Re-Assessment/Exam: 05/04/17 08:37 She reports she is about 60% better at this time and medication was given approximate half an hour ago. She will be discharged home and I will send home a 50 mg capsule of Benadryl to take in 4-6 hours as symptoms will potentially last 12 hours from Haldol. She reports to me that she is currently not taking venlafaxine. Therefore interaction with this drug is not likely. Departure - Departure Time of Disposition: 08:38 Disposition: Home, Self-Care 01 Condition: Fair Clinical Impression: Adverse effects of medication Qualifiers: Encounter type: initial encounter Qualified Code(s): T88.7XXA - Unspecified adverse effect of drug or medicament, initial encounter - Discharge Information Referrals: Guerda Montalvo [Primary Care Provider] - Forms: ED Department Discharge Additional Instructions: Evaluation in the emergency room this morning in regards to severe restlessness and agitation which we call akathesia.. This is a potential side effect of medication such as Haldol which she received 4 hours ago for relief of migraine headache. Some of the antinausea medication such as Compazine and Reglan and Zofran in high enough dosage can cause similar type symptoms. You did receive Benadryl 50 mg IV during your stay in the ED earlier for headache relief which usually would prevent this type of reaction from occurring. Treatment in the ED now is Benadryl 25 mg IV and 25 mg by mouth in an effort to relieve current symptoms. Haldol will last in in the system for about 12 hours. You therefore may have to take a dose of Benadryl 50 mg by mouth in 4-6 hours if symptoms reoccur. I would suggest putting this down as an allergy in the future so that you don't receive this medication again as similar reaction may occur. Reaction to this medication may have occurred due to combination effect with venlafaxine. - My Orders Last 24 Hours: My Active Orders 05/04/17 07:57 Peripheral IV Care [RC] . DIRECTED Sodium Chloride 0.9% [Saline Flush] 10 ml FLUSH ASDIRECTED PRN Peripheral IV Insertion Adult [OM.PC] Stat 05/04/17 08:37 diphenhydrAMINE [Benadryl] 50 mg PO ONETIME ONE - Assessment/Plan Last 24 Hours: My Active Orders 05/04/17 07:57 Peripheral IV Care [RC] . DIRECTED Sodium Chloride 0.9% [Saline Flush] 10 ml FLUSH ASDIRECTED PRN Peripheral IV Insertion Adult [OM.PC] Stat 05/04/17 08:37 diphenhydrAMINE [Benadryl] 50 mg PO ONETIME ONE
[2017-05-04] MEDS ORDERED: diphenhydrAMINE 50 MG Cap PO ONE (08:37)
== END 2017-05-04 08:50 | disposition home or self-care (01) ==
LOC: JD.ED 07:43
DX: G25.71 Drug induced akathisia (principal); T45.0X5A Adverse effect of antiallergic and antiemetic drugs, initial encounter; T43.4X5A Adverse effect of butyrophenone and thiothixene neuroleptics, initial encounter; F17.210 Nicotine dependence, cigarettes, uncomplicated; Z88.6 Allergy status to analgesic agent; Z88.0 Allergy status to penicillin
CPT/HCPCS: 96374; 99284; A9270; J1200; J7050; 99283

== ENCOUNTER 2017-06-09 14:54 | Emergency (ER) | payer MEDICAID ==
[2017-06-09 15:16] VITALS: BP 110/75
== END 2017-06-09 15:40 | disposition left against medical advice (07) ==
LOC: JD.ED 14:54
DX: Z53.21 Procedure and treatment not carried out due to patient leaving prior to being seen by health care provider (principal)

== ENCOUNTER 2017-07-15 07:27 | Emergency (ER) | payer MEDICAID ==
[2017-07-15 07:34] VITALS: BP 110/54
[2017-07-15] MEDS ORDERED: Ondansetron 4 MG/2 ML SDV IVPUSH ONE (07:50)
[2017-07-15] MEDS ORDERED: Sodium Chloride 0.9% 10 ML Syringe FLUSH PRN (07:50)
[2017-07-15] MEDS ORDERED: Sodium Chloride 0.9% 1,000 ML IV STA (07:50)
[2017-07-15] MEDS ORDERED: HYDROmorphone 0.5 MG/0.5 ML SYRINGE IVPUSH ONE (07:51)
--- NOTE | 2017-07-15 07:55 | EDM.PDOC ---
ED HPI GENERAL MEDICAL PROBLEM - General Chief Complaint: Gastrointestinal Problem Stated Complaint: VOMITING Time Seen by Provider: 07/15/17 07:45 Source of Information: Reports: Patient History Limitations: Reports: No Limitations - History of Present Illness INITIAL COMMENTS - FREE TEXT/NARRATIVE: The patient presents with nausea, vomiting, diarrhea and abdominal pain. This started about 4 hours ago and she cannot keep any water down. She has no fever but she does have chills. She has no chest pain or shortness of breath. She has no dysuria. She does not think she is . She still has her galllbadder and appendix. Onset: Gradual Duration: Hour(s): (4) Location: Reports: Abdomen Quality: Reports: Other (cramping) Severity: Moderate Improves with: Reports: None Worsens with: Reports: None Associated Symptoms: Reports: Nausea/Vomiting. Denies: Confusion, Chest Pain, Cough, Fever/Chills, Headaches, Shortness of Breath Lower Abdomen Pain Score (Numeric/FACES): 10 - Related Data Allergies Allergy/AdvReac Type Severity Reaction Status Date / Time NSAIDS (Non-Steroidal AdvReac Abdominal Verified 07/15/17 07:34 Anti-Inflamma Pain Home Meds: Home Meds Ondansetron [Zofran ODT] 4 mg PO Q6H PRN #20 tab.dis 07/15/17 [Rx] Past Medical History Gastrointestinal History: Reports: Hiatal Hernia Other Gastrointestinal History: "bowel issues"; h. 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: Other (See Below) Other OB/BYN History: cyst to left side Neurological History: Reports: Migraines Psychiatric History: Reports: Anxiety, Bipolar, Depression Other Psychiatric History: manic depression, insommnia Hematologic History: Reports: Anemia, Iron Deficiency - Infectious Disease History Infectious Disease History: Reports: Chicken Pox - Past Surgical History Female Surgical History: Reports: Section Social & Family History - Family History Family Medical History: Noncontributory Cardiac: Reports: [place] Neurological: Reports: CVA - Tobacco Use Smoking Status *Q: Current Every Day Smoker Years of Tobacco use: 13 Packs/Tins Daily: 0.5 Used Tobacco, but Quit: No Second Hand Smoke Exposure: No - Caffeine Use Caffeine Use: Reports: Coffee, Tea Other Caffeine Use: daily - Recreational Drug Use Recreational Drug Use: No Drug Use in Last 12 Months: Yes Recreational Drug Type: Reports: Marijuana/Hashish - Living Situation & Occupation Living situation: Reports: Single, with Significant Other (Boyfriend), with Family (2 kids) Occupation: Unemployed ED ROS GENERAL - Review of Systems Review Of Systems: See Below Constitutional: Reports: Chills. Denies: Fever HEENT: Reports: No Symptoms Respiratory: Reports: No Symptoms Cardiovascular: Reports: No Symptoms Endocrine: Reports: No Symptoms GI/Abdominal: Reports: Abdominal Pain, Diarrhea, Nausea, Vomiting : Reports: No Symptoms Musculoskeletal: Reports: No Symptoms ED EXAM, GI/ABD - Physical Exam Exam: See Below Exam Limited By: No Limitations General Appearance: Alert, No Apparent Distress Ears: Normal External Exam Nose: Normal Inspection Head: Atraumatic, Normocephalic Neck: Normal Inspection Respiratory/Chest: No Respiratory Distress, Lungs Clear, Normal Breath Sounds Cardiovascular: Regular Rate, Rhythm, No Edema, No Murmur GI/Abdominal Exam: Soft, No Organomegaly, No Mass, Tender (Mild pain to palpation of the left side of her abdomen) Back Exam: Normal Inspection Course - Vital Signs Last Recorded V/S: Last Vital Signs Temp 98.5 F 07/15/17 07:32 Pulse 82 07/15/17 07:32 Resp 16 07/15/17 07:32 BP 110/54 L 07/15/17 07:32 Pulse Ox 98 07/15/17 07:32 - Orders/Labs/Meds Orders: Active Orders 24 hr Category Date Time Status Peripheral IV Care [RC] . DIRECTED Care 07/15/17 07:51 Active UA W/MICROSCOPIC [URIN] Stat Lab 07/15/17 08:25 Ordered Sodium Chloride 0.9% [Saline Flush] Med 07/15/17 07:50 Active 10 ml FLUSH ASDIRECTED PRN ED Antiemetic Medication Reflex [OM.PC] Stat Oth 07/15/17 07:51 Ordered Peripheral IV Insertion Adult [OM.PC] Stat Oth 07/15/17 07:50 Ordered Medication Orders Sodium Chloride (Saline Flush) 10 ml FLUSH ASDIRECTED PRN PRN Reason: Keep Vein Open Last Admin: 07/15/17 08:08 Dose: 10 ml Labs: Laboratory Tests 07/15/17 07/15/17 07/15/17 Range/Units 08:05 08:05 08:05 WBC 8.09 (3.98-10.04) K/mm3 RBC 4.76 (3.98-5.22) M/mm3 Hgb 13.7 (11.2-15.7) gm/L Hct 40.6 (34.1-44.9) % MCV 85.3 (79.4-94.8) fl MCH 28.8 (25.6-32.2) pg MCHC 33.7 (32.2-35.5) g/dl RDW Std Deviation 39.4 (36.4-46.3) fL Plt Count 189 (182-369) K/mm3 MPV 10.8 (9.4-12.3) fl Neut % (Auto) 82.3 H (34.0-71.1) % Lymph % (Auto) 11.5 L (19.3-51.7) % Williamson % (Auto) 4.9 (4.7-12.5) % Eos % (Auto) 0.7 (0.7-5.8) Baso % (Auto) 0.5 (0.1-1.2) % Neut # (Auto) 6.65 H (1.56-6.13) K/mm3 Lymph # (Auto) 0.93 L (1.18-3.74) K/mm3 Williamson # (Auto) 0.40 H (0.24-0.36) K/mm3 Eos # (Auto) 0.06 (0.04-0.36) K/mm3 Baso # (Auto) 0.04 (0.01-0.08) K/mm3 Sodium 144 (136-145) mEq/L Potassium 3.7 (3.5-5.1) mEq/L Chloride 107 (98-107) mEq/L Carbon Dioxide 24 (21-32) mEq/L Anion Gap 16.7 H (5-15) BUN 12 (7-18) mg/dL Creatinine 0.8 (0.55-1.02) mg/dL Est Cr Clr Drug Dosing 80.41 mL/min Estimated GFR (MDRD) > 60 (>60) mL/min BUN/Creatinine Ratio 15.0 (14-18) Glucose 110 H (74-106) mg/dL Calcium 9.4 (8.5-10.1) mg/dL Total Bilirubin 0.5 (0.2-1.0) mg/dL AST 12 L (15-37) U/L ALT 11 L (14-59) U/L Alkaline Phosphatase 65 (46-116) U/L Total Protein 7.3 (6.4-8.2) g/dl Albumin 4.4 (3.4-5.0) g/dl Globulin 2.9 gm/dL Albumin/Globulin Ratio 1.5 (1-2) Lipase 98 (73-393) U/L HCG, Qual Negative (NEGATIVE) Urine Color (Yellow) Urine Appearance (Clear) Urine pH (5.0-8.0) Ur Specific [place] (1.005-1.030) Urine Protein (Negative) Urine Glucose (UA) (Negative) Urine Ketones (Negative) Urine Occult Blood (Negative) Urine Nitrite (Negative) Urine Bilirubin (Negative) Urine Urobilinogen (0.2-1.0) Ur Leukocyte Esterase (Negative) Urine RBC (0-5) /hpf Urine WBC (0-5) /hpf Ur Epithelial Cells (0-5) /hpf Urine Bacteria (FEW) /hpf Urine Mucus (FEW) /hpf 07/15/17 Range/Units 08:25 WBC (3.98-10.04) K/mm3 RBC (3.98-5.22) M/mm3 Hgb (11.2-15.7) gm/L Hct (34.1-44.9) % MCV (79.4-94.8) fl MCH (25.6-32.2) pg MCHC (32.2-35.5) g/dl RDW Std Deviation (36.4-46.3) fL Plt Count (182-369) K/mm3 MPV (9.4-12.3) fl Neut % (Auto) (34.0-71.1) % Lymph % (Auto) (19.3-51.7) % Williamson % (Auto) (4.7-12.5) % Eos % (Auto) (0.7-5.8) Baso % (Auto) (0.1-1.2) % Neut # (Auto) (1.56-6.13) K/mm3 Lymph # (Auto) (1.18-3.74) K/mm3 Williamson # (Auto) (0.24-0.36) K/mm3 Eos # (Auto) (0.04-0.36) K/mm3 Baso # (Auto) (0.01-0.08) K/mm3 Sodium (136-145) mEq/L Potassium (3.5-5.1) mEq/L Chloride (98-107) mEq/L Carbon Dioxide (21-32) mEq/L Anion Gap (5-15) BUN (7-18) mg/dL Creatinine (0.55-1.02) mg/dL Est Cr Clr Drug Dosing mL/min Estimated GFR (MDRD) (>60) mL/min BUN/Creatinine Ratio (14-18) Glucose (74-106) mg/dL Calcium (8.5-10.1) mg/dL Total Bilirubin (0.2-1.0) mg/dL AST (15-37) U/L ALT (14-59) U/L Alkaline Phosphatase (46-116) U/L Total Protein (6.4-8.2) g/dl Albumin (3.4-5.0) g/dl Globulin gm/dL Albumin/Globulin Ratio (1-2) Lipase (73-393) U/L HCG, Qual (NEGATIVE) Urine Color Light yellow (Yellow) Urine Appearance Clear (Clear) Urine pH 7.5 (5.0-8.0) Ur Specific [place] 1.020 (1.005-1.030) Urine Protein Negative (Negative) Urine Glucose (UA) Negative (Negative) Urine Ketones Negative (Negative) Urine Occult Blood Negative (Negative) Urine Nitrite Negative (Negative) Urine Bilirubin Negative (Negative) Urine Urobilinogen 0.2 (0.2-1.0) Ur Leukocyte Esterase Negative (Negative) Urine RBC 0-5 (0-5) /hpf Urine WBC 0-5 (0-5) /hpf Ur Epithelial Cells 0-5 (0-5) /hpf Urine Bacteria Not seen (FEW) /hpf Urine Mucus Not seen (FEW) /hpf Meds: Medications Generic Name Dose Route Start Last Admin Trade Name Freq PRN Reason Stop Dose Admin Sodium Chloride 10 ml 07/15/17 07:50 07/15/17 08:08 Saline Flush FLUSH 10 ml ASDIRECTED PRN Administration Keep Vein Open Discontinued Medications Generic Name Dose Route Start Last Admin Trade Name Giovani PRN Reason Stop Dose Admin Hydromorphone HCl 0.5 mg 07/15/17 07:51 07/15/17 08:08 Dilaudid IVPUSH 07/15/17 07:52 0.5 mg ONETIME ONE Administration Sodium Chloride 1,000 mls @ 1,000 mls/hr 07/15/17 07:50 07/15/17 08:04 Normal Saline IV 07/15/17 08:49 1,000 mls/hr .BOLUS STA Administration Ondansetron HCl 4 mg 07/15/17 07:50 07/15/17 08:07 Zofran IVPUSH 07/15/17 07:51 4 mg ONETIME ONE Administration - Re-Assessments/Exams Free Text/Narrative Re-Assessment/Exam: 07/15/17 07:55 I ordered an IV NS 1L bolus, zofran 4mg IV, dilaudid 0.5mg IV and labs. 07/15/17 09:06 Her CBC and CMP look good. Her HCG is negative. Her UA shows no UTI. She feels better. She has a viral URI. I will get her some zofran for at home. Departure - Departure Time of Disposition: 09:10 Disposition: Home, Self-Care 01 Condition: Good Clinical Impression: Viral gastroenteritis - Discharge Information Prescriptions: Ondansetron [Zofran ODT] 4 mg PO Q6H PRN #20 tab.dis PRN Reason: Nausea\\vomiting Referrals: Guerda Montalvo [Primary Care Provider] - 1 Week Forms: ED Department Discharge Additional Instructions: Drink plenty of fluids. Take zofran 4mg every 6 hours as needed for nausea and vomiting. You may take a hydrocodone jaime 6 hours as needed for any pain. Please return if your are worse. - My Orders Last 24 Hours: My Active Orders 07/15/17 07:50 Sodium Chloride 0.9% [Saline Flush] 10 ml FLUSH ASDIRECTED PRN Peripheral IV Insertion Adult [OM.PC] Stat 07/15/17 07:51 Peripheral IV Care [RC] . DIRECTED ED Antiemetic Medication Reflex [OM.PC] Stat 07/15/17 08:25 UA W/MICROSCOPIC [URIN] Stat - Assessment/Plan Last 24 Hours: My Active Orders 07/15/17 07:50 Sodium Chloride 0.9% [Saline Flush] 10 ml FLUSH ASDIRECTED PRN Peripheral IV Insertion Adult [OM.PC] Stat 07/15/17 07:51 Peripheral IV Care [RC] . DIRECTED ED Antiemetic Medication Reflex [OM.PC] Stat 07/15/17 08:25 UA W/MICROSCOPIC [URIN] Stat
== END 2017-07-15 09:22 | disposition home or self-care (01) ==
LOC: JD.ED 07:27
DX: A08.4 Viral intestinal infection, unspecified (principal); F17.210 Nicotine dependence, cigarettes, uncomplicated; Z88.8 Allergy status to other drugs, medicaments and biological substances
CPT/HCPCS: 36415; 80053; 81001; 83690; 84703; 85025; 96361; 96374; 96375; 99284; J1170; J2405; J7040; J7050

== ENCOUNTER 2018-04-16 15:42 | Emergency (ER) | payer MEDICAID ==
[2018-04-16 16:19] VITALS: BP 92/62
--- NOTE | 2018-04-16 16:39 | EDM.PDOC ---
ED HPI GENERAL MEDICAL PROBLEM - General Chief Complaint: Upper Extremity Injury/Pain Stated Complaint: RIGHT RING FINGER INFECTED Time Seen by Provider: 04/16/18 16:12 Source of Information: Reports: Patient History Limitations: Reports: No Limitations - History of Present Illness INITIAL COMMENTS - FREE TEXT/NARRATIVE: The patient presents with right ring finger swelling and pain. This started a few days ago at work. It was more swollen then but she has been soaking her finger in hydrogen peroxide and epsum salts. She did not injure her finger. She has no fever or chills. Onset: Gradual Duration: Day(s): Location: Reports: Upper Extremity, Right (ring finger) Quality: Reports: Sharp Severity: Moderate Improves with: Reports: Immobilization Worsens with: Reports: Movement Associated Symptoms: Reports: No Other Symptoms Right Hand Pain Score (Numeric/FACES): 6 - Related Data Allergies Allergy/AdvReac Type Severity Reaction Status Date / Time NSAIDS (Non-Steroidal AdvReac Abdominal Verified 03/24/18 14:32 Anti-Inflamma Pain Home Meds: Home Meds Cephalexin [Keflex] 500 mg PO TID #21 capsule 04/16/18 [Rx] Vitamin E 1 cap PO DAILY 04/16/18 [History] Past Medical History Gastrointestinal History: Reports: Hiatal Hernia Other Gastrointestinal History: "bowel issues"; h. 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: cyst to left side Neurological History: Reports: Migraines Psychiatric History: Reports: Anxiety, Bipolar, Depression Other Psychiatric History: manic depression, insommnia Hematologic History: Reports: Anemia, Iron Deficiency - Infectious Disease History Infectious Disease History: Reports: Chicken Pox - Past Surgical History Female Surgical History: Reports: Section Social & Family History - Family History Family Medical History: Noncontributory Cardiac: Reports: [place] Neurological: Reports: CVA - Tobacco Use Smoking Status *Q: Current Every Day Smoker Years of Tobacco use: 17 Packs/Tins Daily: 0.5 - Caffeine Use Caffeine Use: Reports: Coffee, Energy Drinks, Soda, Tea Other Caffeine Use: daily - Recreational Drug Use Recreational Drug Use: No - Living Situation & Occupation Living situation: Reports: Single, with Significant Other (Boyfriend), with Family (2 kids) Occupation: Unemployed Review of Systems - Review of Systems Review Of Systems: See Below Constitutional: Reports: No Symptoms Eyes: Reports: No Symptoms Ears: Reports: No Symptoms Nose: Reports: No Symptoms Mouth/Throat: Reports: No Symptoms Respiratory: Reports: No Symptoms Cardiovascular: Reports: No Symptoms GI/Abdominal: Reports: No Symptoms Genitourinary: Reports: No Symptoms Musculoskeletal: Reports: Other (Right ring finger redness and swelling) ED EXAM, GENERAL - Physical Exam Exam: See Below Exam Limited By: No Limitations General Appearance: Alert, No Apparent Distress Ears: Normal External Exam Nose: Normal Inspection Throat/Mouth: Normal Inspection Neck: Normal Inspection Respiratory/Chest: No Respiratory Distress Extremities: Other (Right ring finger has some mild redness and swelling along the nail bed and corner of the nail) Course - Vital Signs Last Recorded V/S: Last Vital Signs Temp 98.4 F 04/16/18 16:17 Pulse 64 04/16/18 16:17 Resp 20 04/16/18 16:17 BP 92/62 04/16/18 16:17 Pulse Ox 99 04/16/18 16:17 - Re-Assessments/Exams Free Text/Narrative Re-Assessment/Exam: 04/16/18 16:36 She has a peronychia. There is not enough there to drain. I will get her on some keflex. 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 Take the keflex 3 times per day for a week. Please return if you are worse.
== END 2018-04-16 16:50 | disposition home or self-care (01) ==
LOC: JD.ED 15:42
DX: L03.011 Cellulitis of right finger (principal); F17.210 Nicotine dependence, cigarettes, uncomplicated; Z88.8 Allergy status to other drugs, medicaments and biological substances
CPT/HCPCS: 99283

== ENCOUNTER 2018-12-07 16:59 | Emergency (ER) | payer MEDICAID ==
[2018-12-07 17:06] VITALS: BP 110/72
--- NOTE | 2018-12-07 17:37 | EDM.PDOC ---
ED HPI GENERAL MEDICAL PROBLEM - General Chief Complaint: ENT Problem Stated Complaint: CAN'T HEAR OUT OF RIGHT EAR Time Seen by Provider: 12/07/18 17:20 Source of Information: Reports: Patient History Limitations: Reports: No Limitations - History of Present Illness INITIAL COMMENTS - FREE TEXT/NARRATIVE: Patient is a 28-year-old female who presents to the ED complaining of increased cerumen to both ears. States she used a Q-tip to the right ear today and in attempt to remove the earwax but only pushed it further in. There is no pain associated with this. She has to have heres ears irrigated quite frequently. Again she denies any pain or urinary-like symptoms. Throat Pain Score (Numeric/FACES): 3 - Related Data Allergies Allergy/AdvReac Type Severity Reaction Status Date / Time NSAIDS (Non-Steroidal AdvReac Abdominal Verified 12/07/18 17:07 Anti-Inflamma Pain Past Medical History Gastrointestinal History: Reports: Hiatal Hernia Other Gastrointestinal History: "bowel issues"; h. 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: Other (See Below) Other RUNNER OUT History: cyst to left side Neurological History: Reports: Migraines Psychiatric History: Reports: Anxiety, Bipolar, Depression Other Psychiatric History: manic depression, insommnia Hematologic History: Reports: Anemia, Iron Deficiency - Infectious Disease History Infectious Disease History: Reports: Chicken Pox - Past Surgical History Female Surgical History: Reports: Section Social & Family History - Family History Family Medical History: Noncontributory Cardiac: Reports: [place] Neurological: Reports: CVA - Tobacco Use Smoking Status *Q: Never Smoker Second Hand Smoke Exposure: No - Caffeine Use Caffeine Use: Reports: Coffee, Soda Other Caffeine Use: daily - Recreational Drug Use Recreational Drug Use: No - Living Situation & Occupation Living situation: Reports: Single, with Significant Other (Boyfriend), with Family (2 kids) Occupation: Unemployed ED ROS ENT - Review of Systems Review Of Systems: ROS reveals no pertinent complaints other than HPI. ED EXAM, ENT - Physical Exam Exam: See Below Exam Limited By: No Limitations General Appearance: Alert, WD/WN, No Apparent Distress Ears: Hearing Grossly Normal, Cerumen Impaction (Bilateral) Nose: Normal Inspection, Normal Mucousa, No Blood Mouth/Throat: Normal Inspection, Normal Gums, Normal Lips, Normal Oropharynx Head: Atraumatic, Normocephalic Neck: Normal Inspection, Supple Respiratory/Chest: No Respiratory Distress, No Accessory Muscle Use Cardiovascular: Normal Peripheral Pulses, Regular Rate, Rhythm Extremities: Normal Inspection Neurological: Alert, Oriented, CN II-XII Intact, Normal Cognition, Normal Gait, No Motor/Sensory Deficits Psychiatric: Normal Affect, Normal Mood Skin: Warm, Dry, Intact, Normal Color Course - Vital Signs Last Recorded V/S: Last Vital Signs Temp 98.1 F 12/07/18 17:06 Pulse 75 12/07/18 17:06 Resp 14 12/07/18 17:06 BP 110/72 12/07/18 17:06 Pulse Ox 98 12/07/18 17:06 - Orders/Labs/Meds Orders: Active Orders 24 hr Category Date Time Status Ear Irrigation [RC] ASDIRECTED Care 12/07/18 17:25 Active - Re-Assessments/Exams Free Text/Narrative Re-Assessment/Exam: Cerumen impaction bilaterally. Bilateral irrigation of your canals ordered. Per nursing staff no issues with irrigation. Discharge instructions have been completed. Departure - Departure Time of Disposition: 17:37 Disposition: Home, Self-Care 01 Condition: Good Clinical Impression: Impacted cerumen of both ears, Excessive cerumen in both ear canals - Discharge Information Instructions: Earwax Buildup, Adult, Ear Drops, Adult, [id number] Referrals: PCP,None [Primary Care Provider] - Forms: ED Department Discharge Additional Instructions: Please read the educational material. Followup with PCP as needed for further rinsing of ear canals. Purchase OTC debrox gtts and follow instructions. Return to the E.D. for any new or worsening symptoms. - My Orders Last 24 Hours: My Active Orders 12/07/18 17:25 Ear Irrigation [RC] ASDIRECTED - Assessment/Plan Last 24 Hours: My Active Orders 12/07/18 17:25 Ear Irrigation [RC] ASDIRECTED
== END 2018-12-07 17:51 | disposition home or self-care (01) ==
LOC: JD.ED 16:59
DX: H61.23 Impacted cerumen, bilateral (principal); Z88.6 Allergy status to analgesic agent
CPT/HCPCS: 99283

== ENCOUNTER 2019-09-27 15:55 | Emergency (ER) | payer MEDICAID ==
[2019-09-27 16:07] VITALS: BP 108/80; PULSE 85
--- NOTE | 2019-09-27 16:33 | EDM.PDOC ---
ED HPI GENERAL MEDICAL PROBLEM - General Chief Complaint: ENT Problem Stated Complaint: DENTAL COMPLAINT Time Seen by Provider: 09/27/19 16:03 Source of Information: Reports: Patient History Limitations: Reports: No Limitations - History of Present Illness INITIAL COMMENTS - FREE TEXT/NARRATIVE: Nirmala is a 29 year old female here for dental pain. She is supposed to have her left upper wisdom tooth out Sunday with an oral surgeon in [place]. She states she grinds her teeth and has ground down the wisdom tooth down to the nerve. She is experiencing severe pain up into her sinuses face and left ear. No fevers or vomiting. No facial swelling. She reports associated nausea. Taking 4 tylenol every 4-6 hours with little pain control. Left Lower Tooth/Teeth Pain Score (Numeric/FACES): 6 - Related Data Allergies Allergy/AdvReac Type Severity Reaction Status Date / Time NSAIDS (Non-Steroidal AdvReac Abdominal Verified 09/27/19 16:07 Anti-Inflamma Pain Home Meds: Home Meds Acetaminophen/oxyCODONE [Percocet 325-5 MG] 1 tab PO Q4H PRN #15 tab 09/27/19 [Rx] Amoxicillin 500 mg PO ASDIRECTED 09/27/19 [History] [place] Carbonate 150 - 300 mg PO BID 09/27/19 [History] Past Medical History - Past Health History Medical/Surgical History: Denies Medical/Surgical History Gastrointestinal History: Reports: Hiatal Hernia Other Gastrointestinal History: "bowel issues"; h. 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: cyst to left side Neurological History: Reports: Migraines Psychiatric History: Reports: Anxiety, Bipolar, Depression Other Psychiatric History: manic depression, insommnia Hematologic History: Reports: Anemia, Iron Deficiency - Infectious Disease History Infectious Disease History: Reports: Chicken Pox - Past Surgical History Female Surgical History: Reports: Section Social & Family History - Family History Family Medical History: Noncontributory Cardiac: Reports: [place] Neurological: Reports: CVA - Tobacco Use Smoking Status *Q: Current Every Day Smoker Years of Tobacco use: 15 Packs/Tins Daily: 0.2 - Caffeine Use Caffeine Use: Reports: None Other Caffeine Use: daily - Recreational Drug Use Recreational Drug Use: No - Living Situation & Occupation Living situation: Reports: Single, with Significant Other (Boyfriend), with Family (2 kids) Occupation: Unemployed ED ROS ENT - Review of Systems Review Of Systems: See Below Constitutional: Denies: Fever HEENT: Reports: Dental Pain (left upper maxilla), Ear Pain (left), Sinus Problem GI/Abdominal: Reports: Nausea. Denies: Vomiting ED EXAM, ENT - Physical Exam Exam: See Below Exam Limited By: No Limitations General Appearance: Alert, WD/WN, No Apparent Distress, Thin Eye Exam: Bilateral Eye: Normal Inspection, PERRL Ears: Normal External Exam, Normal Canal, Hearing Grossly Normal, Normal TMs Nose: Normal Inspection Mouth/Throat: Normal Inspection, Normal Gums, Normal Lips, Normal Oropharynx, Dental Pain (#16), Dental Trauma (#16 is black and mostly missing; multiple carries present) Respiratory/Chest: No Respiratory Distress, Lungs Clear, Normal Breath Sounds Cardiovascular: Normal Peripheral Pulses, Regular Rate, Rhythm, No Murmur Neurological: Alert, Oriented, Normal Cognition Psychiatric: Normal Affect, Normal Mood Skin: Warm, Dry, Normal Color Course - Vital Signs Last Recorded V/S: Last Vital Signs Temp 97.9 F 09/27/19 16:04 Pulse 85 09/27/19 16:04 Resp 16 09/27/19 16:04 BP 108/80 09/27/19 16:04 Pulse Ox 100 09/27/19 16:04 Departure - Departure Time of Disposition: 16:24 Disposition: Home, Self-Care 01 Condition: Good Clinical Impression: Infected dental caries - Discharge Information *PRESCRIPTION DRUG MONITORING PROGRAM REVIEWED*: No *COPY OF PRESCRIPTION DRUG MONITORING REPORT IN PATIENT RUDOLPH: No Prescriptions: Acetaminophen/oxyCODONE [Percocet 325-5 MG] 1 tab PO Q4H PRN #15 tab PRN Reason: Pain Instructions: Diet and Dental Disease Referrals: Francoise Shah MD [Primary Care Provider] - Forms: ED Department Discharge Additional Instructions: May use percocoet 1-2 tabs PO every 4-6 hours prn pain. Percocet is habit forming, take as few of these as needed to control your pain. Do not drive or operate machinery within 12 hours of taking prescription narcotic pain medication. Percocet contains tylenol, do not take more than 4 grams of tylenol in one day. Recommend using some dental wax, clove oil or oragel for additional pain relief. Follow-up with your oral surgeon Sunday as panned. Please return to the ER should your symptoms change or worsen. Sepsis Event Note (ED) - Evaluation Sepsis Screening Result: No Definite Risk - Focused Exam Vital Signs: Vital Signs Temp Pulse Resp BP Pulse Ox 09/27/19 16:04 97.9 F 85 16 108/80 100
== END 2019-09-27 16:43 | disposition home or self-care (01) ==
LOC: JD.ED 15:55
DX: K02.9 Dental caries, unspecified (principal); F31.9 Bipolar disorder, unspecified; F17.210 Nicotine dependence, cigarettes, uncomplicated; Z88.6 Allergy status to analgesic agent; Z79.899 Other long term (current) drug therapy
CPT/HCPCS: 99282; 99283

== ENCOUNTER 2019-09-29 09:06 | Emergency (ER) | payer MEDICAID ==
[2019-09-29 09:19] VITALS: BP 102/79; PULSE 73
[2019-09-29] MEDS ORDERED: Ondansetron 4 MG/2 ML SDV IVPUSH ONE (10:09)
[2019-09-29] MEDS ORDERED: Lactated Ringers 1,000 ML IV ONE (10:09)
--- NOTE | 2019-09-29 10:52 | EDM.PDOC ---
ED HPI GENERAL MEDICAL PROBLEM - General Chief Complaint: Gastrointestinal Problem Stated Complaint: VOMITING Time Seen by Provider: 09/29/19 10:20 Source of Information: Reports: Patient, RN Notes Reviewed History Limitations: Reports: No Limitations - History of Present Illness INITIAL COMMENTS - FREE TEXT/NARRATIVE: Patient is a 29-year-old female who presents to the ED today for the evaluation of her nausea and vomiting. Patient notes that she was seen in this ER 2 days ago, prescribed amoxicillin and Percocet for a dental complaint, she been taking her medication just fine the last 2 days. Patient states that she did work today so she got up at 4 AM and took her Percocet on an empty stomach, and developed nausea and vomiting, that seems to be out of control shortly after taking the medication. Patient is complaining also of a headache, upper abdominal pain, between the shoulder pain, and some mild chest pain. Patient denies any fever/chills, cough/shortness of breath, any sort of dysuria, frequency or urgency. Patient states that she was not able to keep any of her food or fluids or meds down this morning, so she is in quite a bit of pain otherwise. Patient states she does have a history of migraines as well, but this headache feels a little different than her typical migraine. Headache Pain Score (Numeric/FACES): 10 - Related Data Allergies Allergy/AdvReac Type Severity Reaction Status Date / Time NSAIDS (Non-Steroidal AdvReac Abdominal Verified 09/29/19 09:19 Anti-Inflamma Pain Home Meds: Home Meds Acetaminophen/oxyCODONE [Percocet 325-5 MG] 1 tab PO Q4H PRN #15 tab 09/27/19 [Rx] Amoxicillin 500 mg PO ASDIRECTED 09/27/19 [History] [place] Carbonate 150 - 300 mg PO BID 09/27/19 [History] Past Medical History Gastrointestinal History: Reports: Hiatal Hernia Other Gastrointestinal History: "bowel issues"; h. 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 Neurological History: Reports: Migraines Psychiatric History: Reports: Anxiety, Bipolar, Depression Other Psychiatric History: manic depression, insommnia Hematologic History: Reports: Anemia, Iron Deficiency - Infectious Disease History Infectious Disease History: Reports: Chicken Pox - Past Surgical History Female Surgical History: Reports: Section Social & Family History - Family History Family Medical History: Noncontributory Cardiac: Reports: [place] Neurological: Reports: CVA - Tobacco Use Smoking Status *Q: Current Every Day Smoker Years of Tobacco use: 5 Packs/Tins Daily: 0.2 - Caffeine Use Caffeine Use: Reports: None Other Caffeine Use: daily - Recreational Drug Use Recreational Drug Use: No - Living Situation & Occupation Living situation: Reports: Single, with Significant Other (Boyfriend), with Family (2 kids) Occupation: Unemployed ED ROS GENERAL - Review of Systems Review Of Systems: Comprehensive ROS is negative, except as noted in HPI. ED EXAM, GI/ABD - Physical Exam Exam: See Below Exam Limited By: No Limitations General Appearance: Alert, WD/WN, No Apparent Distress Eyes: Bilateral: Normal Appearance Ears: Normal External Exam Nose: Normal Inspection Throat/Mouth: Normal Inspection, Normal Lips, Normal Teeth, Normal Gums, Normal Oropharynx, Normal Voice, No Airway Compromise Head: Atraumatic, Normocephalic Respiratory/Chest: No Respiratory Distress, Lungs Clear, Normal Breath Sounds, No Accessory Muscle Use, Chest Non-Tender Cardiovascular: Normal Peripheral Pulses, Regular Rate, Rhythm, No Murmur GI/Abdominal Exam: Normal Bowel Sounds, Soft, No Distention, No Mass, Tender (mildly tender over epigastrium) Extremities: Normal Inspection, Normal Capillary Refill Neurological: Alert, Oriented, Normal Cognition, No Motor/Sensory Deficits Psychiatric: Normal Affect, Normal Mood Skin Exam: Warm, Dry, Intact, Normal Color (some generalized pallor, otherwise normal), No Rash Course - Vital Signs Last Recorded V/S: Last Vital Signs Temp 98.3 F 09/29/19 09:16 Pulse 73 09/29/19 09:16 Resp 16 09/29/19 09:16 BP 102/79 09/29/19 09:16 Pulse Ox 100 09/29/19 09:16 - Orders/Labs/Meds Labs: Laboratory Tests 09/29/19 09/29/19 Range/Units 10:37 10:37 WBC 7.16 (3.98-10.04) K/mm3 RBC 4.41 (3.98-5.22) M/mm3 Hgb 12.8 (11.2-15.7) gm/dl Hct 39.9 (34.1-44.9) % MCV 90.5 D (79.4-94.8) fl MCH 29.0 (25.6-32.2) pg MCHC 32.1 L (32.2-35.5) g/dl RDW Std Deviation 41.3 (36.4-46.3) fL Plt Count 189 (182-369) K/mm3 MPV 10.4 (9.4-12.3) fl Neut % (Auto) 83.4 H (34.0-71.1) % Lymph % (Auto) 9.8 L (19.3-51.7) % [place] % (Auto) 4.9 (4.7-12.5) % Eos % (Auto) 1.0 (0.7-5.8) Baso % (Auto) 0.8 (0.1-1.2) % Neut # (Auto) 5.97 (1.56-6.13) K/mm3 Lymph # (Auto) 0.70 L (1.18-3.74) K/mm3 [place] # (Auto) 0.35 (0.24-0.36) K/mm3 Eos # (Auto) 0.07 (0.04-0.36) K/mm3 Baso # (Auto) 0.06 (0.01-0.08) K/mm3 Manual Slide Review Abnormal smear Sodium 142 (136-145) mEq/L Potassium 4.1 (3.5-5.1) mEq/L Chloride 107 (98-107) mEq/L Carbon Dioxide 26 (21-32) mEq/L Anion Gap 13.1 (5-15) BUN 6 L (7-18) mg/dL Creatinine 0.8 (0.55-1.02) mg/dL Est Cr Clr Drug Dosing 79.00 mL/min Estimated GFR (MDRD) > 60 (>60) mL/min BUN/Creatinine Ratio 7.5 L (14-18) Glucose 97 (74-106) mg/dL Calcium 9.0 (8.5-10.1) mg/dL Magnesium 2.1 (1.8-2.4) mg/dl Total Bilirubin 0.6 (0.2-1.0) mg/dL AST 26 (15-37) U/L ALT 20 (14-59) U/L Alkaline Phosphatase 57 (46-116) U/L Total Protein 6.9 (6.4-8.2) g/dl Albumin 4.1 (3.4-5.0) g/dl Globulin 2.8 gm/dL Albumin/Globulin Ratio 1.5 (1-2) Meds: Medications Discontinued Medications Generic Name Dose Route Start Last Admin Trade Name Freq PRN Reason Stop Dose Admin Al Hydroxide/Mg Hydroxide 30 0 ml 09/29/19 11:08 09/29/19 11:54 ml/ Lidocaine HCl 15 ml PO 09/29/19 11:09 45 ml ONETIME ONE Administration Hydromorphone HCl 0.5 mg 09/29/19 11:07 09/29/19 11:50 Dilaudid IVPUSH 09/29/19 11:08 0.5 mg ONETIME ONE Administration Lactated Ringer's 1,000 mls @ 999 mls/hr 09/29/19 10:09 09/29/19 10:37 Ringers, Lactated IV 09/29/19 11:09 999 mls/hr .BOLUS ONE Administration Ondansetron HCl 4 mg 09/29/19 10:09 09/29/19 10:37 Zofran IVPUSH 09/29/19 10:10 4 mg ONETIME ONE Administration - Re-Assessments/Exams Free Text/Narrative Re-Assessment/Exam: 09/29/19 10:51 Patient presents to the ED the evaluation of her nausea and vomiting. Patient get some labs, 1 L of LR, 4 mg Zofran, and once her nausea is more under control, we can try to get some of her regular medications into her, along with a GI cocktail as she states she is having some mild heartburn type symptoms after puking all morning. 09/29/19 11:55 Labs are unremarkable, patient be discharged home with general recommendations, she was reassessed at bedside, and states she is feeling better. Departure - Departure Time of Disposition: 11:55 Disposition: Home, Self-Care 01 Condition: Good Clinical Impression: Nausea and vomiting in adult - Discharge Information *PRESCRIPTION DRUG MONITORING PROGRAM REVIEWED*: No *COPY OF PRESCRIPTION DRUG MONITORING REPORT IN PATIENT RUDOLPH: No Instructions: Nausea and Vomiting, Adult, [id number] Referrals: Francoise Shah MD [Primary Care Provider] - Forms: ED Department Discharge, ED Return to Work/School Form Additional Instructions: You have been evaluated in the ED for nausea/vomiting. Your symptoms are likely due to you taking your Percocet pain medications on empty stomach, please try to eat something prior to taking these medications as they are well known to cause nausea if not taken with a meal. You have received IV fluid in the ED to help with the dehydration from the vomiting. Laboratory evaluation was essentially unremarkable. Over the next 24-48 hours please try to limit diet to clear liquids and advance as tolerate to a bland diet to alleviate symptoms of nausea/vomiting. Please continue to take all other medications as previously prescribed. If you are having some heartburn type issues due to the vomiting, you might want to try to take some Tums, or Pepcid to relieve the heartburn feelings. These are medications are [id number], you can obtain these at any retail space like [employer] or any pharmacy. Please return to the ED if your symptoms should change or worsen. Sepsis Event Note (ED) - Evaluation Sepsis Screening Result: No Definite Risk
[2019-09-29] MEDS ORDERED: HYDROmorphone 0.5 MG/0.5 ML Syringe IVPUSH ONE (11:07)
[2019-09-29] MEDS ORDERED: Alum Hydrox/Mag Hydrox/Simeth 30 ML, Lidocaine 2% 15 ML PO ONE ×2 (11:08)
== END 2019-09-29 12:30 | disposition home or self-care (01) ==
LOC: JD.ED 09:06
DX: R11.2 Nausea with vomiting, unspecified (principal); F31.9 Bipolar disorder, unspecified; F17.210 Nicotine dependence, cigarettes, uncomplicated; Z88.6 Allergy status to analgesic agent; Z79.899 Other long term (current) drug therapy
CPT/HCPCS: 36415; 80053; 83735; 85025; 96361; 96374; 96375; 99284; A9270; J1170; J2405; J7120; 99283

== ENCOUNTER 2019-11-29 15:27 | Emergency (ER) | payer MEDICAID ==
[2019-11-29 15:49] VITALS: BP 108/73; PULSE 76
--- NOTE | 2019-11-29 16:03 | EDM.PDOC ---
ED HPI GENERAL MEDICAL PROBLEM - General Chief Complaint: General Stated Complaint: HEAD CONGESTION Time Seen by Provider: 11/29/19 15:43 Source of Information: Reports: Patient History Limitations: Reports: No Limitations - History of Present Illness INITIAL COMMENTS - FREE TEXT/NARRATIVE: Patient is a 29-year-old female who presents to the emergency department with complaints of a 3-week history of sinus congestion, nasal drainage, headache, postnasal drip, and productive cough. About 1 week into her illness, she states she started to feel little better but then within a couple days symptoms worsened. She was seen at the [facility] approximately 2 weeks ago for the symptoms as she thought she had a sinus infection which she has had in the past. She states they tested her for coronavirus which was found to be negative, however she was never started any antibiotics. Denies any fever, chills, nausea, vomiting, or diarrhea. Throat Pain Score (Numeric/FACES): 7 - Related Data Allergies Allergy/AdvReac Type Severity Reaction Status Date / Time NSAIDS (Non-Steroidal AdvReac Abdominal Verified 11/29/19 15:49 Anti-Inflamma Pain Home Meds: Home Meds [place] Carbonate 150 - 300 mg PO BID 09/27/19 [History] Amoxicillin/Clavulanate K [Augmentin 875-125 MG] 1 tab PO BID 7 Days #14 tablet 11/29/19 [Rx] Mirtazapine [Remeron] 30 mg PO BEDTIME 11/29/19 [History] Past Medical History - Past Health History Medical/Surgical History: Denies Medical/Surgical History HEENT History: Reports: None Cardiovascular History: Reports: None Respiratory History: Reports: None Gastrointestinal History: Reports: Hiatal Hernia Other Gastrointestinal History: "bowel issues"; h. 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: , Other (See Below) Other ENRICHMENT ASSISTANT History: cyst to left side Musculoskeletal History: Reports: None Neurological History: Reports: Migraines Psychiatric History: Reports: Anxiety, Bipolar, Depression Other Psychiatric History: manic depression, insommnia Endocrine/Metabolic History: Reports: None Hematologic History: Reports: Anemia, Iron Deficiency Immunologic History: Reports: None Oncologic (Cancer) History: Reports: None Dermatologic History: Reports: None - Infectious Disease History Infectious Disease History: Reports: None - Past Surgical History Female Surgical History: Reports: Section Social & Family History - Family History Family Medical History: Noncontributory Cardiac: Reports: [place] Neurological: Reports: CVA - Tobacco Use Smoking Status *Q: Current Every Day Smoker Years of Tobacco use: 15 Packs/Tins Daily: 0.2 - Caffeine Use Caffeine Use: Reports: Coffee Other Caffeine Use: daily - Recreational Drug Use Recreational Drug Use: No - Living Situation & Occupation Living situation: Reports: Single, with Significant Other (Boyfriend), with Family (2 kids) Occupation: Unemployed ED ROS GENERAL - Review of Systems Review Of Systems: Comprehensive ROS is negative, except as noted in HPI. ED EXAM, GENERAL - Physical Exam Exam: See Below Exam Limited By: No Limitations General Appearance: Alert, WD/WN, No Apparent Distress Ears: Normal External Exam, Normal Canal, Hearing Grossly Normal, Normal TMs Throat/Mouth: Normal Inspection, Normal Lips, Normal Teeth, Normal Gums, Normal Oropharynx, Normal Voice, No Airway Compromise Head: Atraumatic, Normocephalic, Sinus Tenderness (Maxillary) Neck: Normal Inspection, Supple, Non-Tender, Full Range of Motion Respiratory/Chest: No Respiratory Distress, Lungs Clear, Normal Breath Sounds, No Accessory Muscle Use, Chest Non-Tender Cardiovascular: Normal Peripheral Pulses, Regular Rate, Rhythm, No Edema, No Gallop, No JVD, No Murmur, No Rub Neurological: Alert, Oriented, CN II-XII Intact, Normal Cognition, Normal Gait, Normal Reflexes, No Motor/Sensory Deficits Psychiatric: Normal Affect, Normal Mood Skin Exam: Warm, Dry, Intact, Normal Color, No Rash Course - Vital Signs Last Recorded V/S: Last Vital Signs Temp 97 F 11/29/19 15:46 Pulse 76 11/29/19 15:46 Resp 16 11/29/19 15:46 BP 108/73 11/29/19 15:46 Pulse Ox 100 11/29/19 15:46 - Re-Assessments/Exams Free Text/Narrative Re-Assessment/Exam: 11/29/19 16:00 Patient's exam was significant for tenderness over the maxillary sinuses but was otherwise unremarkable. Lung sounds were clear. Based on her history it is likely that she is suffering from a bacterial sinus infection. I will write a prescription for Augmentin. Discussed that she may also purchase [id number] Flonase. Discharge instructions as documented. Departure - Departure Time of Disposition: 16:01 Disposition: Home, Self-Care 01 Condition: Good Clinical Impression: Bacterial sinusitis - Discharge Information *PRESCRIPTION DRUG MONITORING PROGRAM REVIEWED*: No *COPY OF PRESCRIPTION DRUG MONITORING REPORT IN PATIENT RUDOLPH: No Prescriptions: Amoxicillin/Clavulanate K [Augmentin 875-125 MG] 1 tab PO BID 7 Days #14 tablet Instructions: Sinusitis, Adult, [id number] Referrals: Francoise Shah NP [Primary Care Provider] - Additional Instructions: You were seen in the emergency department today for a 3-week history of sinus congestion, sore throat, cough, and headache. Based on your history and exam, it is like that you are suffering from bacterial sinusitis. You been started on Augmentin which is an antibiotic. Take this medication as prescribed. You may also purchase [id number] Flonase which is a steroid nasal spray to help decrease the inflammation in your sinuses. Use this twice daily as needed. You may use [id number] Tylenol as needed for discomfort. If your symptoms fail to improve over the next few days, recommend that you follow-up with your primary care provider in the clinic. Return to the ER as needed. Sepsis Event Note (ED) - Evaluation Sepsis Screening Result: No Definite Risk - Focused Exam Vital Signs: Vital Signs Temp Pulse Resp BP Pulse Ox 11/29/19 15:46 97 F 76 16 108/73 100
== END 2019-11-29 16:10 | disposition home or self-care (01) ==
LOC: JD.ED 15:27
DX: J32.9 Chronic sinusitis, unspecified (principal); B96.89 Other specified bacterial agents as the cause of diseases classified elsewhere; F17.210 Nicotine dependence, cigarettes, uncomplicated; Z88.6 Allergy status to analgesic agent; Z98.890 Other specified postprocedural states
CPT/HCPCS: 99283

== ENCOUNTER 2020-07-27 14:04 | Emergency (ER) | payer MEDICAID ==
[2020-07-27] MEDS ORDERED: HYDROmorphone 0.5 MG/0.5 ML Syringe IVPUSH ONE (14:45)
[2020-07-27] MEDS ORDERED: Sodium Chloride 0.9% 10 ML Syringe FLUSH PRN (14:45)
[2020-07-27] MEDS ORDERED: Ondansetron 4 MG/2 ML SDV IVPUSH ONE (14:45)
[2020-07-27] MEDS ORDERED: Sodium Chloride 0.9% 1,000 ML IV ONE (14:45)
[2020-07-27] MEDS ORDERED: Iopamidol 612 MG/ML 100 ML Bottle IVPUSH ONE (14:58)
[2020-07-27] MEDS ORDERED: Diatrizoate Meglumine/Diatrizoate Sodium 37% 120 ML Bottle PO ONE (14:58)
[2020-07-27] MEDS ORDERED: Sodium Chloride 0.9% 10 ML Syringe FLUSH ONE (14:58)
--- NOTE | 2020-07-27 15:05 | EDM.PDOC ---
<Litzy Klein V - Last Filed: 07/27/20 17:04> ED HPI GENERAL MEDICAL PROBLEM - General Chief Complaint: Abdominal Pain Stated Complaint: CHEST PAIN/ABDOMINAL PAIN Time Seen by Provider: 07/27/20 14:35 - Related Data Allergies Allergy/AdvReac Type Severity Reaction Status Date / Time NSAIDS (Non-Steroidal AdvReac Abdominal Verified 07/27/20 14:34 Anti-Inflamma Pain Home Meds: Home Meds Mirtazapine [Remeron] 30 mg PO BEDTIME 11/29/19 [History] predniSONE [Prednisone] 20 mg PO DAILY 07/27/20 [History] Course - Re-Assessments/Exams Free Text/Narrative Re-Assessment/Exam: 07/27/20 16:16 I have taken this patient over from Radha Dias NP, will await CT results, and come up with a plan for disposition and discharge. 07/27/20 16:[address] has returned, there are no major focal abnormalities. She has minimal areas of atelectasis, and quite a bit of increased stool in the colon, specifically in the right side of the colon. Likely this could be causing some of her abdomen pain. The oral contrast should provide more of a laxative effect, I will see if she would like to use a bottle of mag citrate as well. In light of the normal labs, and fairly normal CT. It does appear this is mostly just constipation there is no evidence of colitis whatsoever by our radiology department. Likely the patient could have had some rectal bleeding due to hemorrhoids/possible anal fissure versus bleeding from colitis. However she should go forward with the general surgeon referral, to see if they can shed any light on her symptoms. Departure - Departure Time of Disposition: 16:55 Disposition: Home, Self-Care 01 Condition: Good Clinical Impression: Constipation Qualifiers: Constipation type: unspecified constipation type Qualified Code(s): K59.00 - Constipation, unspecified - Discharge Information *PRESCRIPTION DRUG MONITORING PROGRAM REVIEWED*: No *COPY OF PRESCRIPTION DRUG MONITORING REPORT IN PATIENT RUDOLPH: No Instructions: Constipation, Adult, [id number] Referrals: Francoise Shah NP [Primary Care Provider] - Forms: ED Department Discharge Additional Instructions: You were evaluated in the ER today for your abdomen pain. You had multiple labs taken at today's visit, along with a CT, and everything was fairly unremarkable. Your CT demonstrated no sign of colitis at today's visit. It did show however that you had quite a bit of stool within your colon, which is suggestive of constipation at this time. The oral contrast provided at today's visit will provide somewhat of a laxative effect. If you have not had a few rather large bowel movements by the end of , You were given a bottle of magnesium citrate to use tomorrow. If you are not already doing so, highly recommend you use a stool softener in your daily diet/regimen to provide a regular bowel pattern. You may take 500 mg Tylenol or 600 mg ibuprofen every 6 hours as needed for further pain relief. Do not exceed 4000 mg Tylenol or 3200 mg ibuprofen in a 24-hour time span. Please keep your appointment with general surgery, for to see if they have any other suggestions, and or ideas on your abdomen pain that you have been experiencing. Please return to the ER at any time if symptoms change or worsen. <Radha Dias - Last Filed: 07/28/20 09:08> ED HPI GENERAL MEDICAL PROBLEM - General Source of Information: Reports: Patient History Limitations: Reports: No Limitations - History of Present Illness INITIAL COMMENTS - FREE TEXT/NARRATIVE: 30-year-old female presents the emergency department today with complaints of upper abdominal pain and left lower quadrant pain. Patient reports that she was seen at [facility] by her provider on July 21, 2020 for complaints of generalized abdominal pain and emeka red blood noted in her stools. She states that lab work was completed that day as well as a CT of the abdomen. She did bring her radiologist report from the CT of the abdomen which did show mural thickening of the transverse and descending colon which could be the result of colitis. Appendix was not visualized. No pneumoperitoneum. Normal calendar large and small bowel. Extensive pelvic viscosities. Solid organs are normal. No lymphadenopathy. The patient states that she has been told to follow-up with one of the surgeons. She does have an appointment scheduled for [facility] in 2 days however she states that over the past 24 hours the pain has become extreme and now radiates up into her chest. She has had a low-grade temp with chills. She states she has been nauseated however has not been vomiting. She states that she has not had a bowel movement for the past 3 days. And prior to that she had been having diarrhea stools. There is no chance that she can be as she has had a tubal ligation in the past. Upper Abdomen Pain Score (Numeric/FACES): 10 Past Medical History - Past Health History Medical/Surgical History: Denies Medical/Surgical History HEENT History: Reports: None Cardiovascular History: Reports: None Respiratory History: Reports: None Gastrointestinal History: Reports: Hiatal Hernia, Other (See Below) Other Gastrointestinal History: "bowel issues"; h. 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: , Other (See Below) Other WOOD HEEL FINISHER History: cyst to left side Musculoskeletal History: Reports: None Neurological History: Reports: Migraines Psychiatric History: Reports: Anxiety, Bipolar, Depression Other Psychiatric History: manic depression, insommnia, borderline personality Endocrine/Metabolic History: Reports: None Hematologic History: Reports: Anemia, Iron Deficiency Immunologic History: Reports: None Oncologic (Cancer) History: Reports: None Dermatologic History: Reports: None - Infectious Disease History Infectious Disease History: Reports: None - Past Surgical History Female Surgical History: Reports: Section Social & Family History - Family History Family Medical History: No Pertinent Family History Cardiac: Reports: [place] Neurological: Reports: CVA - Tobacco Use Tobacco Use Status *Q: Current Every Day Tobacco User Years of Tobacco use: 16 Packs/Tins Daily: 0.5 - Caffeine Use Caffeine Use: Reports: None Other Caffeine Use: daily - Recreational Drug Use Recreational Drug Use: No - Living Situation & Occupation Living situation: Reports: Single, with Significant Other (Boyfriend), with Family (2 kids) Occupation: Unemployed ED ROS GENERAL - Review of Systems Review Of Systems: See Below Constitutional: Reports: Chills. Denies: Fever HEENT: Reports: No Symptoms Respiratory: Reports: No Symptoms Cardiovascular: Reports: Chest Pain (Midsternal that has radiated from her upper abdominal pain). Denies: Dyspnea on Exertion, Edema, Lightheadedness, Palpitations Endocrine: Reports: No Symptoms GI/Abdominal: Reports: Abdominal Pain (Left upper quadrant left lower quadrant), Bloody Stool (History of bloody diarrhea stool about 1 week ago), Constipation (Bowel movement x3 days), Nausea. Denies: Diarrhea, Vomiting : Reports: No Symptoms Musculoskeletal: Reports: No Symptoms Skin: Reports: No Symptoms Neurological: Reports: No Symptoms Psychiatric: Reports: No Symptoms Hematologic/Lymphatic: Reports: No Symptoms Immunologic: Reports: No Symptoms ED EXAM, GI/ABD - Physical Exam Exam: See Below Exam Limited By: No Limitations General Appearance: Alert, WD/WN, Mild Distress Ears: Normal External Exam, Hearing Grossly Normal Nose: Normal Inspection Throat/Mouth: Normal Inspection, Normal Lips, Normal Voice, No Airway Compromise Head: Atraumatic, Normocephalic Neck: Normal Inspection, Supple Respiratory/Chest: No Respiratory Distress, Lungs Clear, Normal Breath Sounds, No Accessory Muscle Use, Chest Non-Tender Cardiovascular: Normal Peripheral Pulses, Regular Rate, Rhythm, No Edema, No Murmur GI/Abdominal Exam: Normal Bowel Sounds, Soft, Non-Tender, No Distention (Female) Exam: Deferred Rectal (Female) Exam: Deferred Back Exam: Normal Inspection, Full Range of Motion Extremities: Normal Inspection, Normal Range of Motion, Non-Tender, No Pedal Edema, Normal Capillary Refill Neurological: Alert, Oriented, Normal Cognition Psychiatric: Normal Affect, Normal Mood Skin Exam: Warm, Dry, Intact, Normal Color, No Rash Lymphatic: No Adenopathy #1 Interpretation EKG Date: 07/27/20 Time: 14:23 Rhythm: NSR Rate (Beats/Min): 76 [place]: Normal P-Wave: Present QRS: Normal ST-T: Normal QT: Normal Comparison: NA - No Prior EKG EKG Interpretation Comments: Per Dr. Shipley interpretation: Sinus rhythm at 76 bpm; diffuse early repolarization pattern; mildly decreased voltage limb leads; QTC is mildly prolonged Course - Vital Signs Text/Narrative:: 30-year-old female with abdominal pain that started over a week ago. She was seen at [facility] by her primary care physician. Labs and a CT scan were completed at that time which showed a questionable colitis. She is to follow-up with surgical services at [facility] 2 days from now however abdominal pain has worsened in severity and now is radiating up into her chest in the sternal area. She denies vomiting however has been nauseated over the past several days. She states she has not had a bowel movement for 3 days and has not been eating or drinking much of anything. She has had chills off and on for the past few days as well. I have ordered labs, CT of the abdomen and pelvis, IV fluids as she is likely dehydrated, Zofran for the nausea and Dilaudid to treat her pain. Last Recorded V/S: Last Vital Signs Temp 99.0 F 07/27/20 14:14 Pulse 52 L 07/27/20 17:15 Resp 18 07/27/20 17:15 BP 107/76 07/27/20 17:15 Pulse Ox 99 07/27/20 17:15 - Orders/Labs/Meds Orders: Active Orders 24 hr Category Date Time Status Saline Lock Insert [OM.PC] Stat Oth 07/27/20 14:45 Ordered EKG 12 Lead [EK] Stat Ther 07/27/20 14:20 Ordered Labs: Laboratory Tests 07/27/20 07/27/20 Range/Units 14:15 14:15 WBC 7.36 (3.98-10.04) K/mm3 RBC 4.47 (3.98-5.22) M/mm3 Hgb 12.9 (11.2-15.7) gm/dl Hct 39.5 (34.1-44.9) % MCV 88.4 (79.4-94.8) fl MCH 28.9 (25.6-32.2) pg MCHC 32.7 (32.2-35.5) g/dl RDW Std Deviation 41.0 (36.4-46.3) fL Plt Count 188 (182-369) K/mm3 MPV 11.0 (9.4-12.3) fl Neut % (Auto) 58.3 (34.0-71.1) % Lymph % (Auto) 34.2 (19.3-51.7) % [place] % (Auto) 6.4 (4.7-12.5) % Eos % (Auto) 0.3 L (0.7-5.8) Baso % (Auto) 0.4 (0.1-1.2) % Neut # (Auto) 4.29 (1.56-6.13) K/mm3 Lymph # (Auto) 2.52 (1.18-3.74) K/mm3 [place] # (Auto) 0.47 H (0.24-0.36) K/mm3 Eos # (Auto) 0.02 L (0.04-0.36) K/mm3 Baso # (Auto) 0.03 (0.01-0.08) K/mm3 Sodium 141 (136-145) mEq/L Potassium 3.3 L (3.5-5.1) mEq/L Chloride 102 (98-107) mEq/L Carbon Dioxide 27 (21-32) mEq/L Anion Gap 15.3 H (5-15) BUN 18 (7-18) mg/dL Creatinine 0.8 (0.55-1.02) mg/dL Est Cr Clr Drug Dosing 89.16 mL/min Estimated GFR (MDRD) > 60 (>60) mL/min BUN/Creatinine Ratio 22.5 H (14-18) Glucose 82 (74-106) mg/dL Calcium 8.7 (8.5-10.1) mg/dL Magnesium 2.4 (1.8-2.4) mg/dl Total Bilirubin 0.5 (0.2-1.0) mg/dL AST 10 L (15-37) U/L ALT 22 (14-59) U/L Alkaline Phosphatase 52 (46-116) U/L C-Reactive Protein <0.2 (<1.0) mg/dL Total Protein 7.1 (6.4-8.2) g/dl Albumin 4.2 (3.4-5.0) g/dl Globulin 2.9 gm/dL Albumin/Globulin Ratio 1.5 (1-2) Meds: Medications Discontinued Medications Generic Name Dose Route Start Last Admin Trade Name Freq PRN Reason Stop Dose Admin Diatrizoate Meglum/Diatrizoate Sod 90 ml 07/27/20 14:58 07/27/20 16:24 Diatrizoate Meglumine/Diatrizoate Sodium 37% 120 Ml Bottle PO 07/27/20 14:59 45 ml ONETIME ONE Administration Hydromorphone HCl 0.5 mg 07/27/20 14:45 07/27/20 14:55 Hydromorphone 0.5 Mg/0.5 Ml Syringe IVPUSH 07/27/20 14:46 0.5 mg ONETIME ONE Administration Sodium Chloride 1,000 mls @ 999 mls/hr 07/27/20 14:45 07/27/20 14:56 Normal Saline IV 07/27/20 15:45 999 mls/hr ONETIME ONE Administration Iopamidol 100 ml 07/27/20 14:58 07/27/20 16:24 Iopamidol 612 Mg/Ml 100 Ml Bottle IVPUSH 07/27/20 14:59 100 ml ONETIME ONE Administration Magnesium Citrate 296 ml 07/27/20 17:04 07/27/20 17:13 Magnesium Citrate Solution 296 Ml Bottle PO 07/27/20 17:05 296 ml ONETIME ONE Administration Ondansetron HCl 4 mg 07/27/20 14:45 07/27/20 14:55 Ondansetron 4 Mg/2 Ml Sdv IVPUSH 07/27/20 14:46 4 mg ONETIME ONE Administration Sodium Chloride 10 ml 07/27/20 14:45 07/27/20 14:55 Sodium Chloride 0.9% 10 Ml Syringe FLUSH 10 ml ASDIRECTED PRN Administration Keep Vein Open Sodium Chloride 10 ml 07/27/20 14:58 07/27/20 16:24 Sodium Chloride 0.9% 10 Ml Syringe FLUSH 07/27/20 14:59 10 ml ONETIME ONE Administration - Re-Assessments/Exams Free Text/Narrative Re-Assessment/Exam: 07/27/20 15:19 Hematology reveals a WBC of 7.36, hemoglobin 12.9, hematocrit 39.5, platelet count 188, chemistry reveals a sodium of 141, potassium 3.3, carbon dioxide 27, anion gap 15.3, BUN 18, creatinine 0.8, BUN/creatinine ratio is 22.5, glucose is 82, magnesium 2.4, AST 10, ALT 22, alk phos 52, C-reactive protein less than 0.2 07/27/20 15:40 Radiologist impression portable view of the chest: 1. Nothing acute is appreciated on portable chest x-ray. Sepsis Event Note (ED) - Evaluation Sepsis Screening Result: No Definite Risk - My Orders Last 24 Hours: My Active Orders 07/27/20 14:20 EKG 12 Lead [EK] Stat 07/27/20 14:45 Saline Lock Insert [OM.PC] Stat - Assessment/Plan Last 24 Hours: My Active Orders 07/27/20 14:20 EKG 12 Lead [EK] Stat 07/27/20 14:45 Saline Lock Insert [OM.PC] Stat
--- NOTE | 2020-07-27 15:26 | CR ---
Chest: Portable view of the chest was obtained. Comparison: No prior chest imaging is available. Heart size and mediastinum are normal. Lungs are clear with no acute parenchymal change seen. Bony structure shows nothing acute. Impression: 1. Nothing acute is appreciated on portable chest x-ray. Diagnostic code #1
--- NOTE | 2020-07-27 16:42 | CT ---
CT abdomen and pelvis Technique: Multiple axial sections were obtained from above the dome of the diaphragm inferiorly through the pubic symphysis. Intravenous contrast was utilized. Oral contrast has also been given. Reconstructed coronal and sagittal images were obtained. Comparison: Prior CT abdomen and pelvis exam performed elsewhere dated 07/21/20. Findings: Minimal areas of atelectasis are seen posteriorly. Liver contains no focal parenchymal abnormality. Spleen appears normal. Adrenal glands show no nodule. No abnormality is appreciated within the pancreas. Both kidneys show symmetric contrast enhancement. No hydronephrosis or mass is appreciated. Gallbladder contains no calcified gallstones. Abdominal aorta shows no aneurysm. No retroperitoneal adenopathy or mesenteric abnormalities are appreciated. No pelvic mass or adenopathy is appreciated. Appendix is not definitely visualized. Mild areas of increased stool are seen on the right side. Bone window settings were reviewed which show spondylitic defects at L5-S1. No acute osseous finding is appreciated. Impression: 1. Minimal atelectasis within both posterior lungs. 2. Slight increased stool within mostly the right colon. Spondylolytic defects at L5-S1. 3. No additional abnormality is appreciated on CT study of the abdomen and pelvis. Diagnostic code #2
[2020-07-27] MEDS ORDERED: Magnesium Citrate Solution 296 ML Bottle PO ONE (17:04)
[2020-07-27 17:37] VITALS: BP 107/76; PULSE 52
== END 2020-07-27 17:15 | disposition home or self-care (01) ==
LOC: JD.ED 14:04
DX: K59.00 Constipation, unspecified (principal); R07.2 Precordial pain; Z72.0 Tobacco use; Z88.6 Allergy status to analgesic agent; Z79.899 Other long term (current) drug therapy
CPT/HCPCS: 36415; 71045; 74177; 80053; 83735; 85025; 86140; 93005; 96374; 96375; 99284; A9270; J1170; J2405; J7030; Q9963; Q9967; 93010; 99283

== ENCOUNTER 2020-08-18 10:05 | Emergency (ER) | payer MEDICAID ==
--- NOTE | 2020-08-18 10:26 | EDM.PDOC ---
ED HPI GENERAL MEDICAL PROBLEM - General Chief Complaint: Abdominal Pain Stated Complaint: ABD/BACK PAIN COLONOSCOPY SURGERY Time Seen by Provider: 08/18/20 10:26 - History of Present Illness INITIAL COMMENTS - FREE TEXT/NARRATIVE: 30-year-old female presents the emergency room with abdominal pain. Yesterday at [facility] the patient had a colonoscopy done by Dr. Razo. Shortly after leaving the outpatient procedure she developed abdominal pain seem to be worsened with moving and when she felt gas bubbles moving her stomach it was quite painful. This pain is not improved. Apparently the patient was quite sweaty last night she woke up with that sheets wet. But she is not aware of any fevers or chills. She is not had any diarrhea. She has had some nausea intermittently seems to be brought on by the pain. Patient denies any possibility of and she believes this was checked before her procedure. Abdomen Pain Score (Numeric/FACES): 10 - Related Data Allergies Allergy/AdvReac Type Severity Reaction Status Date / Time NSAIDS (Non-Steroidal AdvReac Abdominal Verified 08/18/20 10:18 Anti-Inflamma Pain Home Meds: Home Meds Mirtazapine [Remeron] 30 mg PO BEDTIME 11/29/19 [History] predniSONE [Prednisone] 20 mg PO DAILY 07/27/20 [History] Past Medical History - Past Health History Medical/Surgical History: Denies Medical/Surgical History HEENT History: Reports: None Cardiovascular History: Reports: None Respiratory History: Reports: None Gastrointestinal History: Reports: Hiatal Hernia, Other (See Below) Other Gastrointestinal History: "bowel issues"; h. 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 Musculoskeletal History: Reports: None Neurological History: Reports: Migraines Psychiatric History: Reports: Anxiety, Bipolar, Depression Other Psychiatric History: manic depression, insommnia, borderline personality Endocrine/Metabolic History: Reports: None Hematologic History: Reports: Anemia, Iron Deficiency Immunologic History: Reports: None Oncologic (Cancer) History: Reports: None Dermatologic History: Reports: None - Infectious Disease History Infectious Disease History: Reports: None - Past Surgical History Female Surgical History: Reports: Section Social & Family History - Family History Family Medical History: No Pertinent Family History Cardiac: Reports: [place] Neurological: Reports: CVA - Caffeine Use Caffeine Use: Reports: None Other Caffeine Use: daily - Living Situation & Occupation Living situation: Reports: Single, with Significant Other (Boyfriend), with Family (2 kids) Occupation: Unemployed ED ROS GENERAL - Review of Systems Review Of Systems: See Below Constitutional: Reports: Night Sweats. Denies: Fever, Chills HEENT: Reports: No Symptoms Respiratory: Reports: No Symptoms Cardiovascular: Reports: No Symptoms GI/Abdominal: Reports: Abdominal Pain, Decreased Appetite, Nausea. Denies: Bloody Stool, Constipation, Diarrhea : Reports: No Symptoms Musculoskeletal: Reports: No Symptoms Skin: Reports: No Symptoms Neurological: Reports: No Symptoms Psychiatric: Reports: Anxiety Hematologic/Lymphatic: Reports: No Symptoms ED EXAM, GI/ABD - Physical Exam Exam: See Below Exam Limited By: No Limitations General Appearance: Alert, Mild Distress (From the discomfort) Head: Atraumatic, Normocephalic Neck: Normal Inspection, Supple, Non-Tender, Full Range of Motion. No: Lymphadenopathy (L), Lymphadenopathy (R) Respiratory/Chest: No Respiratory Distress, Lungs Clear, Normal Breath Sounds Cardiovascular: Regular Rate, Rhythm, No Edema, No Murmur GI/Abdominal Exam: Normal Bowel Sounds, Soft, Other (She has diffuse tenderness throughout seems to be worse on the right side and in the right lower quadrant) Back Exam: Normal Inspection, CVA Tenderness (L) (Mild), CVA Tenderness (R) (Held) Extremities: Normal Inspection, No Pedal Edema Neurological: Alert, Oriented, Normal Cognition Psychiatric: Normal Affect Course - Vital Signs Last Recorded V/S: Last Vital Signs Temp 36.7 C 08/18/20 14:45 Pulse 56 L 08/18/20 14:45 Resp 16 08/18/20 14:45 BP 100/68 08/18/20 14:45 Pulse Ox 99 08/18/20 14:45 - Orders/Labs/Meds Orders: Active Orders 24 hr Category Date Time Status UA RFX SAM AND CULT IF INDIC [URIN] Stat Lab 08/18/20 10:49 Ordered Lactated Ringers [Ringers, Lactated] 1,000 ml Med 08/18/20 11:30 Active IV ASDIRECTED Sodium Chloride 0.9% [Saline Flush] Med 08/18/20 13:11 Active 10 ml FLUSH ONETIME PRN Medication Orders Lactated Ringer's (Ringers, Lactated) 1,000 mls @ 125 mls/hr IV ASDIRECTED MANSI Last Admin: 08/18/20 12:09 Dose: 125 mls/hr Documented by: HERMMIC Sodium Chloride (Sodium Chloride 0.9% 10 Ml Syringe) 10 ml FLUSH ONETIME PRN PRN Reason: IV FLUSH Labs: Laboratory Tests 08/18/20 08/18/20 08/18/20 Range/Units 11:17 11:17 11:17 WBC 4.77 (3.98-10.04) K/mm3 RBC 4.10 (3.98-5.22) M/mm3 Hgb 12.1 (11.2-15.7) gm/dl Hct 36.5 (34.1-44.9) % MCV 89.0 (79.4-94.8) fl MCH 29.5 (25.6-32.2) pg MCHC 33.2 (32.2-35.5) g/dl RDW Std Deviation 39.8 (36.4-46.3) fL Plt Count 136 L (182-369) K/mm3 MPV 10.9 (9.4-12.3) fl Neut % (Auto) 68.3 (34.0-71.1) % Lymph % (Auto) 22.9 (19.3-51.7) % [place] % (Auto) 6.9 (4.7-12.5) % Eos % (Auto) 1.7 (0.7-5.8) Baso % (Auto) 0.2 (0.1-1.2) % Neut # (Auto) 3.26 (1.56-6.13) K/mm3 Lymph # (Auto) 1.09 L (1.18-3.74) K/mm3 [place] # (Auto) 0.33 (0.24-0.36) K/mm3 Eos # (Auto) 0.08 (0.04-0.36) K/mm3 Baso # (Auto) 0.01 (0.01-0.08) K/mm3 Sodium 143 (136-145) mEq/L Potassium 3.7 (3.5-5.1) mEq/L Chloride 108 H (98-107) mEq/L Carbon Dioxide 26 (21-32) mEq/L Anion Gap 12.7 (5-15) BUN 8 (7-18) mg/dL Creatinine 0.7 (0.55-1.02) mg/dL Est Cr Clr Drug Dosing 89.48 mL/min Estimated GFR (MDRD) > 60 (>60) mL/min BUN/Creatinine Ratio 11.4 L (14-18) Glucose 91 (70-99) mg/dL Calcium 8.2 L (8.5-10.1) mg/dL Total Bilirubin 0.5 (0.2-1.0) mg/dL AST 14 L (15-37) U/L ALT 17 (14-59) U/L Alkaline Phosphatase 51 (46-116) U/L Total Protein 6.2 L (6.4-8.2) g/dl Albumin 3.5 (3.4-5.0) g/dl Globulin 2.7 gm/dL Albumin/Globulin Ratio 1.3 (1-2) Lipase 52 L (73-393) U/L HCG, Qual Negative (NEGATIVE) Meds: Medications Generic Name Dose Route Start Last Admin Trade Name Freq PRN Reason Stop Dose Admin Lactated Ringer's 1,000 mls @ 125 mls/hr 08/18/20 11:30 08/18/20 12:09 Ringers, Lactated IV 125 mls/hr ASDIRECTED MANSI Administration Sodium Chloride 10 ml 08/18/20 13:11 Sodium Chloride 0.9% 10 Ml Syringe FLUSH ONETIME PRN IV FLUSH Discontinued Medications Generic Name Dose Route Start Last Admin Trade Name Freq PRN Reason Stop Dose Admin Diatrizoate Meglum/Diatrizoate Sod 120 ml 08/18/20 13:11 Diatrizoate Meglumine/Diatrizoate Sodium 37% 120 Ml Bottle PO 08/18/20 13:12 ONETIME ONE Fentanyl 50 mcg 08/18/20 11:28 08/18/20 12:08 Fentanyl 100 Mcg/2 Ml Sdv IVPUSH 08/18/20 11:29 50 mcg ONETIME ONE Administration Fentanyl 50 mcg 08/18/20 14:24 08/18/20 14:30 Fentanyl 100 Mcg/2 Ml Sdv IVPUSH 08/18/20 14:25 50 mcg ONETIME ONE Administration Iopamidol 100 ml 08/18/20 13:11 Iopamidol 612 Mg/Ml 100 Ml Bottle IVPUSH 08/18/20 13:12 ONETIME ONE Ondansetron HCl 4 mg 08/18/20 11:28 08/18/20 12:08 Ondansetron 4 Mg/2 Ml Sdv IVPUSH 08/18/20 11:29 4 mg ONETIME ONE Administration - Re-Assessments/Exams Free Text/Narrative Re-Assessment/Exam: 08/18/20 15:03 Laboratory evaluation was really unremarkable. Plain films were nondiagnostic. I discussed situation with her surgeon, Dr. Razo and we decided to check a CAT scan this was done with IV and oral contrast and it was nondiagnostic no acute changes noted. I did discuss this with the patient and she understands and will agree this is probably just discomfort associated with the colonoscopy patient would like to go home at this time. She has follow-up with Dr. Razo this next week. Departure - Departure Time of Disposition: 15:05 Disposition: Home, Self-Care 01 Clinical Impression: Abdominal pain of unknown etiology - Discharge Information Referrals: Francoise Shah, [employer] [Primary Care Provider] - Forms: ED Department Discharge Additional Instructions: Return to the emergency room with any questions problems or worsening symptoms. Follow-up in the clinic as scheduled. Push plenty of fluids. And advance diet as tolerated and as instructed. Sepsis Event Note (ED) - Evaluation Sepsis Screening Result: No Definite Risk - Focused Exam Vital Signs: Vital Signs Temp Pulse Resp BP Pulse Ox 08/18/20 14:45 36.7 C 56 L 16 100/68 99 08/18/20 13:26 47 L 16 99/43 L 100 08/18/20 10:10 37.0 C 76 16 103/70 98 - My Orders Last 24 Hours: My Active Orders 08/18/20 10:49 UA RFX SAM AND CULT IF INDIC [URIN] Stat 08/18/20 11:30 Lactated Ringers [Ringers, Lactated] 1,000 ml IV ASDIRECTED 08/18/20 13:11 Sodium Chloride 0.9% [Saline Flush] 10 ml FLUSH ONETIME PRN - Assessment/Plan Last 24 Hours: My Active Orders 08/18/20 10:49 UA RFX SAM AND CULT IF INDIC [URIN] Stat 08/18/20 11:30 Lactated Ringers [Ringers, Lactated] 1,000 ml IV ASDIRECTED 08/18/20 13:11 Sodium Chloride 0.9% [Saline Flush] 10 ml FLUSH ONETIME PRN
[2020-08-18] MEDS ORDERED: Ondansetron 4 MG/2 ML SDV IVPUSH ONE (11:28)
[2020-08-18] MEDS ORDERED: fentaNYL 100 MCG/2 ML SDV IVPUSH ONE ×2 (11:28→14:24)
[2020-08-18] MEDS ORDERED: Lactated Ringers 1,000 ML IV SCH (11:30)
--- NOTE | 2020-08-18 12:33 | CR ---
Abdomen: Supine and crosstable decubitus views of the abdomen were obtained. Comparison: No prior abdominal plain film study is available, previous CT abdomen and pelvis study of 07/27/20. Bowel gas pattern is normal. No free air is seen. Calcifications are noted within the pelvis compatible with phleboliths. No acute osseous abnormality is seen. Impression: 1. Nonspecific 2 view abdominal study. Diagnostic code #1
[2020-08-18] MEDS ORDERED: Iopamidol 612 MG/ML 100 ML Bottle IVPUSH ONE (13:11)
[2020-08-18] MEDS ORDERED: Sodium Chloride 0.9% 10 ML Syringe FLUSH PRN (13:11)
[2020-08-18] MEDS ORDERED: Diatrizoate Meglumine/Diatrizoate Sodium 37% 120 ML Bottle PO ONE (13:11)
--- NOTE | 2020-08-18 14:34 | CT ---
CT abdomen and pelvis Technique: Multiple axial sections were obtained from above the dome of the diaphragm inferiorly through the pubic symphysis. Intravenous and oral contrast was utilized. Reconstructed coronal and sagittal images were obtained. Comparison: Prior CT abdomen and pelvis exam of 07/27/20. Findings: Visualized lung bases show nothing acute. Liver contains no focal parenchymal abnormality. Gallbladder contains no calcified gallstones. Spleen appears within normal limits. Adrenal glands show no nodule. Kidneys show symmetric contrast enhancement without hydronephrosis or mass. Pancreas appears within normal limits. Abdominal aorta shows no aneurysm. No retroperitoneal adenopathy or mesenteric abnormalities are seen. No pelvic mass or adenopathy is noted. Appendix is not visualized with certainty. Small amount of increased air is seen within the colon compatible with history of previous colonoscopy. No free air is seen. Impression: 1. Slight increased air within the colon. No free air is seen. 2. Other portions of the CT exam of the abdomen and pelvis show nothing acute. Diagnostic code #2
[2020-08-18 14:51] VITALS: PULSE 56
[2020-08-18 15:22] VITALS: BP 89/61
== END 2020-08-18 15:20 | disposition home or self-care (01) ==
LOC: JD.ED 10:05
DX: R10.31 Right lower quadrant pain (principal); Z88.8 Allergy status to other drugs, medicaments and biological substances
CPT/HCPCS: 36415; 74019; 74177; 80053; 83690; 84703; 85025; 96374; 96375; 96376; 99284; J2405; J3010; J7120; Q9963; 99283

== ENCOUNTER 2022-03-26 16:06 | Emergency (ER) | payer BC, MEDICAID ==
[2022-03-26 16:37] VITALS: BP 133/91; PULSE 103
[2022-03-26] MEDS ORDERED: Albuterol 0.083% 2.5 MG/3 ML Neb Soln NEB ONE (17:15)
[2022-03-26 17:25] LABS: CORONAVIRUS COVID-19 NAA NEGATIVE (NEGATIVE)
[2022-03-26] MEDS ORDERED: Albuterol 6.7 GM Inhaler INH ONE (18:00)
== END 2022-03-26 18:15 | disposition home or self-care (01) ==
LOC: JD.ED 16:06
DX: J06.9 Acute upper respiratory infection, unspecified (principal); Z72.0 Tobacco use; Z88.8 Allergy status to other drugs, medicaments and biological substances; Z20.822 Contact with and (suspected) exposure to COVID-19
CPT/HCPCS: 0241U; 71045; 99284; A9270

== ENCOUNTER 2022-06-25 11:14 | Emergency (ER) | payer BC ==
[2022-06-25 11:25] VITALS: PULSE 85
[2022-06-25] MEDS ORDERED: Sodium Chloride 0.9% 1,000 ML IV STA (11:54)
[2022-06-25] MEDS ORDERED: Sodium Chloride 0.9% 10 ML Syringe FLUSH PRN (11:54)
[2022-06-25] MEDS ORDERED: Metoclopramide 10 MG/2 ML SDV IVPUSH ONE (11:54)
[2022-06-25] MEDS ORDERED: HYDROmorphone 1 MG/ML Syringe IVPUSH ONE (11:55)
[2022-06-25] MEDS ORDERED: diphenhydrAMINE 50 MG/ML SDV IVPUSH ONE (11:55)
[2022-06-25 14:51] VITALS: BP 100/70
== END 2022-06-25 14:44 | disposition home or self-care (01) ==
LOC: JD.ED 11:14
DX: R51.9 Headache, unspecified (principal); R11.2 Nausea with vomiting, unspecified; Z88.6 Allergy status to analgesic agent; Z79.899 Other long term (current) drug therapy
CPT/HCPCS: 70450; 96361; 96374; 96375; 99284; J1170; J1200; J2765; J3490; J7030

== ENCOUNTER 2022-07-01 05:17 | Emergency (ER) | payer BC ==
[2022-07-01 05:40] VITALS: BP 120/82; PULSE 81
== END 2022-07-01 07:25 | disposition home or self-care (01) ==
LOC: JD.ED 05:17
DX: J02.9 Acute pharyngitis, unspecified (principal); Z88.8 Allergy status to other drugs, medicaments and biological substances
CPT/HCPCS: 87651-QW; 99283

== ENCOUNTER 2022-08-19 14:16 | Emergency (ER) | payer BC ==
[2022-08-19 14:35] VITALS: BP 106/78; PULSE 55
[2022-08-19] MEDS ORDERED: Sodium Chloride 0.9% 10 ML Syringe FLUSH PRN (14:44)
[2022-08-19] MEDS ORDERED: Ondansetron 4 MG/2 ML SDV IVPUSH ONE (14:44)
[2022-08-19] MEDS ORDERED: HYDROmorphone 1 MG/ML Syringe IVPUSH ONE (14:44)
[2022-08-19] MEDS ORDERED: Sodium Chloride 0.9% 1,000 ML IV ONE (14:44)
[2022-08-19 15:10] LABS: BASOPHILS ABSOLUTE AUTO 0.07 K/mm3 (0.01-0.08); BASOPHILS PERCENT AUTO 1.4 % (0.1-1.2); EOSINOPHILS ABSOLUTE AUTO 0.23 K/mm3 (0.04-0.36); EOSINOPHILS PERCENT AUTO 4.7 (0.7-5.8); HEMATOCRIT 37.6 % (34.1-44.9); HEMOGLOBIN 12.2 gm/dl (11.2-15.7); IMMATURE GRAN ABSOLUTE AUTO 0.01 K/mm3 (0.00-0.10); IMMATURE GRAN PERCENT AUTO 0.2 % (<=1.0); LYMPHOCYTES PERCENT AUTO 28.7 % (19.3-51.7); MEAN CORPUSCULAR HEMOGLOBIN 28.7 pg (25.6-32.2); MEAN CORPUSCULAR HGB CONC 32.4 g/dl (32.2-35.5); MEAN CORPUSCULAR VOLUME 88.5 fl (79.4-94.8); MEAN PLATELET VOLUME 9.9 fl (9.4-12.3); MONOCYTES ABSOLUTE AUTO 0.39 K/mm3 (0.24-0.36); NEUTROPHILS ABSOLUTE AUTO 2.78 K/mm3 (1.56-6.13); PLATELET COUNT,PLT 192 K/mm3 (182-369); RED BLOOD CELL COUNT 4.25 M/mm3 (3.98-5.22); WHITE BLOOD CELL COUNT,WBC 4.88 K/mm3 (3.98-10.04)
[2022-08-19 15:29] LABS: A/G RATIO 1.2 (1-2); ALANINE AMINOTRANSFERASE,ALT 20 U/L (14-59); ALBUMIN 3.6 g/dl (3.4-5.0); ALKALINE PHOSPHATASE 55 U/L (46-116); ANION GAP 11.3 (5-15); ASPARTATE AMNIOTRANSFERASE,AST 15 U/L (15-37); BILIRUBIN TOTAL 0.2 mg/dL (0.2-1.0); BLOOD UREA NITROGEN,BUN 13 mg/dL (7-18); BUN/CREATININE RATIO 16.3 (14-18); C-REACTIVE PROTEIN <0.2 mg/dL (<1.0); CALCIUM 8.7 mg/dL (8.5-10.1); CARBON DIOXIDE,CO2 26 mEq/L (21-32); CHLORIDE,CL 106 mEq/L (98-107); CREATININE 0.8 mg/dL (0.55-1.02); EST CRCL DRUG DOSING (CG) 76.89 mL/min; ESTIMATED GFR 101 mL/min (>60); GLUCOSE RANDOM 80 mg/dL (70-99); LIPASE 77 U/L (73-393); POTASSIUM,K 4.3 mEq/L (3.5-5.1); PROTEIN TOTAL,TP 6.6 g/dl (6.4-8.2); SODIUM,NA 139 mEq/L (136-145)
[2022-08-19] MEDS ORDERED: Iopamidol 612 MG/ML 100 ML Bottle IVPUSH ONE (15:29)
[2022-08-19] MEDS ORDERED: Sodium Chloride 0.9% 10 ML Syringe FLUSH ONE (15:29)
[2022-08-19] MEDS ORDERED: Lidocaine 2% 11 ML Jelly Filled Syringe MUCMEM ONE (16:25)
== END 2022-08-19 17:08 | disposition home or self-care (01) ==
LOC: JD.ED 14:16
DX: K62.89 Other specified diseases of anus and rectum (principal); Z87.891 Personal history of nicotine dependence; Z88.6 Allergy status to analgesic agent
CPT/HCPCS: 36415; 74177; 80053; 83690; 83735; 85025; 86140; 96361; 96374; 96375; 99284; A9270; J1170; J2405; J3490; J7030; Q9967

== ENCOUNTER 2024-01-16 21:04 | Emergency (ER) | payer BC ==
[2024-01-16 21:58] VITALS: BP 132/94; PULSE 61
[2024-01-16] MEDS: Hydrocortisone 1% Crm 30 GM Tube TOP PRN (23:21)
== END 2024-01-16 23:21 | disposition home or self-care (01) ==
LOC: JD.ED 21:04
DX: K64.5 Perianal venous thrombosis (principal); K21.9 Gastro-esophageal reflux disease without esophagitis; Z79.899 Other long term (current) drug therapy; Z88.6 Allergy status to analgesic agent
CPT/HCPCS: 99282; A9270; 99283